=== PATIENT | female | born 1970 | race Caucasian/White ===

== ENCOUNTER → 2016-09-23 | Outpatient (CLI) | payer BC ==
[~2016-09-23] MED LIST: /ACYC20CA PO; /PANT40TA PO; ALBUTEROL INH; ANTI50TA PO; COLE1TA PO; DEPA500T2 PO; EFFEXOR XR PO; FIORCAP7 PO; TOPA100T PO; ZOVI200C PO
--- NOTE | 2016-09-24 02:59 | REP ---
Clinical: Trauma with pain to the first and second metatarsal region. Technique: AP, lateral, bilateral oblique views foot . Findings: The osseous structures and joint spaces are intact and normal. There is no evidence for acute fracture or dislocation. Surrounding soft tissues are unremarkable. No subcutaneous emphysema or radiodense foreign body. Impression: Normal examination. No acute fracture or dislocation. Signed by Vinay Ramirez MD 09/24/2016 02:50 A
--- NOTE | 2016-09-24 03:06 | REP ---
Clinical: Trauma. Injury. Technique: AP, lateral, bilateral oblique views of the right ankle. Findings: Lateral soft tissue swelling noted. No acute fracture or dislocation. Joint spaces and ankle mortise are intact. Impression: Lateral swelling. No fracture. Signed by Vinay Ramirez MD 09/24/2016 02:58 A
== END | disposition home or self-care (01) ==
LOC: M WUC 17:33
PROVIDERS: ATTEND Physician Assistant
DX: S90.31XA Contusion of right foot, initial encounter (principal); S90.01XA Contusion of right ankle, initial encounter; M25.471 Effusion, right ankle; X58.XXXA Exposure to other specified factors, initial encounter; Y92.9 Unspecified place or not applicable; Y93.9 Activity, unspecified; Y99.9 Unspecified external cause status

== ENCOUNTER 2017-03-17 20:57 | Emergency (ER) | payer BC ==
[~2017-03-17] VITALS: Ht 154.9 cm; Wt 78.1 kg
[2017-03-17] MEDS ORDERED: CELE40TA PO (21:13)
[2017-03-17] MEDS ORDERED: OMEP10CASR PO (21:13)
[2017-03-17] MEDS ORDERED: KETOROLAC 30 MG/ML VIAL (J1885) IV ONE (22:45)
[2017-03-17] MEDS ORDERED: NS 1,000 ML IV ONE (22:45)
[2017-03-17] MEDS ORDERED: ONDANSETRON 4MG/2ML VIAL (J2405) IV ONE (22:45)
[2017-03-17 23:33] LABS: BASO # 0.1 K/mm3 (0.0-0.2); BASO % 0.8 % (0.0-1.0); EOS # 0.5 K/mm3 (0.0-0.50); EOS % 4.4 % (0.0-3.0); LARGE UNSTAINED CELL # 0.2 K/mm3 (0.0-0.4); LARGE UNSTAINED CELL % 1.5 % (0.0-4.0); LYMPH # 3.4 K/mm3 (1.5-4.5); LYMPH % 27.3 % (24.0-44.0); MEAN CORPUSCULAR HEMOGLOBIN 31.3 pg (27.0-33.0); MEAN CORPUSCULAR HGB CONC 33.8 g/dl (32.0-36.5); MEAN CORPUSCULAR VOLUME 92.4 fl (80.0-96.0); MONO # 0.6 K/mm3 (0.0-0.8); MONO % 4.8 % (0.0-5.0); NEUTROPHILS # 7.3 K/mm3 (1.8-7.7); NEUTROPHILS % 61.1 % (36.0-66.0); PLATELET COUNT, AUTOMATED 265 k/mm3 (150-450); RED CELL DISTRIBUTION WIDTH 12.6 % (11.5-14.5)
[2017-03-18] LABS: ALBUMIN 3.7 GM/DL (3.2-5.2); ALBUMIN/GLOBULIN RATIO 0.82 (1.00-1.93); ALKALINE PHOSPHATASE 95 U/L (45-117); ALT/SGPT 44 U/L (12-78); AMYLASE 38 U/L (25-115); ANION GAP 8 MEQ/L (8-16); AST/SGOT 25 U/L (15-37); BILIRUBIN,DIRECT < 0.1 MG/DL (0.0-0.2); BILIRUBIN,TOTAL 0.2 MG/DL (0.2-1.0); BLOOD UREA NITROGEN 9 MG/DL (7-18); CARBON DIOXIDE LEVEL 30 MEQ/L (21-32); CHLORIDE LEVEL 99 MEQ/L (98-107); CREATININE FOR GFR 0.66 MG/DL (0.55-1.02); GLOMERULAR FILTRATION RATE > 60.0 (>58); GLUCOSE, FASTING 228 MG/DL (70-105); POTASSIUM SERUM 3.9 MEQ/L (3.5-5.1); SODIUM LEVEL 137 MEQ/L (136-145); TOTAL PROTEIN 8.2 GM/DL (6.4-8.2)
[2017-03-18] MEDS ORDERED: CIPR-249 PO (00:20)
[2017-03-18] MEDS ORDERED: CIPROFLOXACIN 500 MG TAB PO ONE (00:30)
[2017-03-18 00:45] VITALS: BP 144/92
== END 2017-03-18 00:57 | disposition home or self-care (01) ==
LOC: M ED 20:57
DX: R10.84 Generalized abdominal pain (principal); R19.7 Diarrhea, unspecified; R42 Dizziness and giddiness; Z88.1 Allergy status to other antibiotic agents; Z88.2 Allergy status to sulfonamides; Z88.8 Allergy status to other drugs, medicaments and biological substances; Z79.899 Other long term (current) drug therapy
CPT/HCPCS: 80048; 80076; 81001; 82150; 83690; 85025; 96361; 96374; 96375; 99283; J1885; J2405

== ENCOUNTER 2018-01-18 22:54 | Emergency (ER) | payer BC ==
[2018-01-19 00:58] LABS: BASO # 0.1 10^3/uL (0.0-0.2); BASO % 0.6 % (0.0-1.0); EOS # 0.4 10^3/uL (0.0-0.50); EOS % 4.2 % (0.0-3.0); IMMATURE GRANULOCYTE % 0.2 % (0-3.0); LYMPH # 3.1 10^3/uL (1.5-4.5); LYMPH % 30.2 % (24.0-44.0); MEAN CORPUSCULAR HEMOGLOBIN 30.8 pg (27.0-33.0); MEAN CORPUSCULAR HGB CONC 34.2 g/dl (32.0-36.5); MONO # 0.7 10^3/uL (0.0-0.8); MONO % 6.4 % (0.0-5.0); NEUTROPHILS # 5.9 10^3/uL (1.8-7.7); NEUTROPHILS % 58.4 % (36.0-66.0); PLATELET COUNT, AUTOMATED 229 10^3/uL (150-450); RED BLOOD COUNT 4.22 10^6/uL (4.00-5.40); RED CELL DISTRIBUTION WIDTH 12.3 % (11.5-14.5); WHITE BLOOD COUNT 10.1 10^3/uL (4.0-10.0)
[2018-01-19 02:13] LABS: ANION GAP 7 MEQ/L (8-16); BLOOD UREA NITROGEN 12 MG/DL (7-18); C REACTIVE PROTEIN QUANTITATIV 1.54 MG/DL (0.00-0.30); CALCIUM LEVEL 8.2 MG/DL (8.5-10.1); CARBON DIOXIDE LEVEL 26 MEQ/L (21-32); CHLORIDE LEVEL 105 MEQ/L (98-107); CREATININE FOR GFR 0.66 MG/DL (0.55-1.30); GLOMERULAR FILTRATION RATE > 60.0 (>58); GLUCOSE, FASTING 271 MG/DL (70-100); POTASSIUM SERUM 3.7 MEQ/L (3.5-5.1); SODIUM LEVEL 138 MEQ/L (136-145)
[2018-01-19] MEDS: CLINDAMYCIN 600 MG in APPROPRIATE DILUENT 1 EA IV (03:07)
[2018-01-19 09:12] LABS: BEDSIDE GLUCOSE 320 MG/DL (70-105)
== END 2018-01-19 03:55 | disposition home or self-care (01) ==
LOC: M ED 22:54
DX: L03.115 Cellulitis of right lower limb (principal); E11.9 Type 2 diabetes mellitus without complications; Z88.8 Allergy status to other drugs, medicaments and biological substances; Z88.0 Allergy status to penicillin; Z88.2 Allergy status to sulfonamides; Z91.048 Other nonmedicinal substance allergy status; Z79.899 Other long term (current) drug therapy; Z79.84 Long term (current) use of oral hypoglycemic drugs
CPT/HCPCS: 93971

== ENCOUNTER 2018-03-23 21:12 | Emergency (ER) | payer BC ==
[2018-03-23] MEDS: TETRACAINE 0.5% OPHTH SOLN 4ML OD (22:52)
[2018-03-23] MEDS: LISSAMINE GREEN OPHTH 1.5 MG STRIP OD (22:52)
== END 2018-03-23 23:09 | disposition home or self-care (01) ==
LOC: M ED 21:12
DX: L03.213 Periorbital cellulitis (principal); E11.9 Type 2 diabetes mellitus without complications; G43.909 Migraine, unspecified, not intractable, without status migrainosus; E78.5 Hyperlipidemia, unspecified; J45.909 Unspecified asthma, uncomplicated; Z79.4 Long term (current) use of insulin; Z79.899 Other long term (current) drug therapy; Z88.2 Allergy status to sulfonamides; Z88.8 Allergy status to other drugs, medicaments and biological substances
CPT/HCPCS: 99283

== ENCOUNTER 2018-03-24 23:48 | Observation (INO) | payer BC ==
[2018-03-25 00:51] LABS: BASO # 0.1 10^3/uL (0.0-0.2); BASO % 0.7 % (0.0-1.0); EOS # 0.4 10^3/uL (0.0-0.50); EOS % 3.7 % (0.0-3.0); HEMATOCRIT 42.5 % (36.0-47.0); HEMOGLOBIN 14.6 g/dl (12.0-15.5); IMMATURE GRANULOCYTE % 0.4 % (0-3.0); LYMPH # 3.6 10^3/uL (1.5-4.5); LYMPH % 33.1 % (24.0-44.0); MEAN CORPUSCULAR HEMOGLOBIN 31.1 pg (27.0-33.0); MEAN CORPUSCULAR HGB CONC 34.4 g/dl (32.0-36.5); MEAN CORPUSCULAR VOLUME 90.4 fl (80.0-96.0); MONO # 0.7 10^3/uL (0.0-0.8); MONO % 6.1 % (0.0-5.0); PLATELET COUNT, AUTOMATED 249 10^3/uL (150-450); RED CELL DISTRIBUTION WIDTH 12.2 % (11.5-14.5); WHITE BLOOD COUNT 10.7 10^3/uL (4.0-10.0)
[2018-03-25] MEDS ORDERED: ISOVUE-370 76% 100ML VIAL (Q9967) As Ordered (00:54)
[2018-03-25 01:11] LABS: ERYTHROCYTE SEDIMENTATION RATE 34 mm/hr (0-20)
[2018-03-25 01:23] LABS: ALBUMIN 3.5 GM/DL (3.2-5.2); ALBUMIN/GLOBULIN RATIO 0.85 (1.00-1.93); ALKALINE PHOSPHATASE 89 U/L (45-117); ALT/SGPT 22 U/L (12-78); ANION GAP 7 MEQ/L (8-16); AST/SGOT 11 U/L (7-37); BILIRUBIN,DIRECT < 0.1 MG/DL (0.0-0.2); BILIRUBIN,TOTAL 0.2 MG/DL (0.2-1.0); BLOOD UREA NITROGEN 9 MG/DL (7-18); C REACTIVE PROTEIN QUANTITATIV 1.81 MG/DL (0.00-0.30); CALCIUM LEVEL 8.6 MG/DL (8.5-10.1); CARBON DIOXIDE LEVEL 27 MEQ/L (21-32); CHLORIDE LEVEL 104 MEQ/L (98-107); CREATININE FOR GFR 0.58 MG/DL (0.55-1.30); GLOMERULAR FILTRATION RATE > 60.0 (>58); GLUCOSE, FASTING 171 MG/DL (70-100); POTASSIUM SERUM 3.8 MEQ/L (3.5-5.1); SODIUM LEVEL 138 MEQ/L (136-145); TOTAL PROTEIN 7.6 GM/DL (6.4-8.2)
[2018-03-25] MEDS: IBUPROFEN 800 MG TAB PO (01:30)
[2018-03-25] MEDS: CLINDAMYCIN 600 MG in APPROPRIATE DILUENT 1 EA IV ×2 (02:15→09:48)
[2018-03-25] MEDS ORDERED: BISACODYL 5 MG TAB PO (02:45)
[2018-03-25] MEDS ORDERED: zolPIDEM TARTRATE 5 MG TAB PO (02:45)
[2018-03-25] MEDS ORDERED: ONDANSETRON 4 MG TAB (S0181) PO (02:45)
[2018-03-25] MEDS ORDERED: GLUCOSE 4 GM CHEW TABLET PO (06:15)
[2018-03-25] MEDS ORDERED: GLUCAGON FOR INJ 1 MG VIAL (J1610) SC (06:15)
[2018-03-25] MEDS ORDERED: DEXTROSE 50% 50 ML SYRINGE IV (06:15)
[2018-03-25] MEDS: HEPARIN SOD (PORCINE) 5000 UNITS/ML VIAL SC (06:33)
[2018-03-25] MEDS ORDERED: busPIRone 5 MG TAB PO (07:15)
[2018-03-25] MEDS ORDERED: metFORMIN XR 500MG TAB *GLUCOPHAGE XR PO (08:00)
[2018-03-25 08:04] LABS: BEDSIDE GLUCOSE 132 MG/DL (70-105)
[2018-03-25] MEDS ORDERED: PILL CRUSHER/CUTTER 1 EACH XX (08:15)
[2018-03-25] MEDS: HumaLOG INSULIN (NovoLOG) PER UNIT SC ×2 (08:23→13:26)
[2018-03-25] MEDS: CitaloPRAM (CeleXA) 20 MG TAB PO (08:24)
[2018-03-25] MEDS: OMEPRAZOLE 20 MG CAP PO (08:24)
[2018-03-25] MEDS: busPIRone 5 MG TAB PO (08:25)
[2018-03-25] MEDS: ACETAMINOPHEN TAB 650MG DOSE (2X325MG) PO (08:41)
[2018-03-25] MEDS: ADVAIR HFA 115/21MCG INHALER INH (11:26)
[2018-03-25 12:24] LABS: BEDSIDE GLUCOSE 158 MG/DL (70-105)
[2018-03-25] MEDS: TOBRADEX OPHTH SUSP 2.5 ML OD (13:26)
[2018-03-25] MEDS ORDERED: HumaLOG INSULIN (NovoLOG) PER UNIT SC (21:00)
[2018-03-25] MEDS ORDERED: LEVEMIR (INSULIN DETEMIR) 1 UNITS/0.01ML SC ×2 (21:00)
== END 2018-03-25 14:27 | disposition home or self-care (01) ==
LOC: M ED 23:48 → M ED INP 23:49 → M PED 03-25 04:15
DX: L03.213 Periorbital cellulitis (principal); E11.9 Type 2 diabetes mellitus without complications; Z79.4 Long term (current) use of insulin; Z79.899 Other long term (current) drug therapy; Z88.2 Allergy status to sulfonamides; Z88.8 Allergy status to other drugs, medicaments and biological substances
CPT/HCPCS: Q9967

== ENCOUNTER 2018-06-06 16:20 | Emergency (ER) | payer BC ==
[2018-06-06 17:44] LABS: HEMOGLOBIN 14.8 g/dl (12.0-15.5); MEAN CORPUSCULAR HEMOGLOBIN 31.2 pg (27.0-33.0); MEAN CORPUSCULAR HGB CONC 35.2 g/dl (32.0-36.5); MEAN CORPUSCULAR VOLUME 88.4 fl (80.0-96.0); PLATELET COUNT, AUTOMATED 217 10^3/uL (150-450); RED BLOOD COUNT 4.75 10^6/uL (4.00-5.40); RED CELL DISTRIBUTION WIDTH 13.5 % (11.5-14.5); WHITE BLOOD COUNT 6.9 10^3/uL (4.0-10.0)
[2018-06-06 17:54] LABS: CONTROL LINE HCG INT CTR LINE PRESENT; HCG, SERUM QUALITATIVE NEGATIVE (NEGATIVE)
[2018-06-06 18:03] LABS: AMPHETAMINES LEVEL URINE NEGATIVE (NEGATIVE); BARBITURATES URINE POSITIVE (NEGATIVE); BENZODIAZEPINES URINE NEGATIVE (NEGATIVE); CANNABINOIDS URINE NEGATIVE (NEGATIVE); COCAINE METABOLITE URINE NEGATIVE (NEGATIVE); METHADONE URINE NEGATIVE (NEGATIVE); OPIATES URINE NEGATIVE (NEGATIVE); PHENCYCLIDINE URINE NEGATIVE (NEGATIVE)
[2018-06-06 18:18] LABS: ACETAMINOPHEN LEVEL < 2.0 UG/ML (10.0-30.0); ALBUMIN 3.5 GM/DL (3.2-5.2); ALKALINE PHOSPHATASE 99 U/L (45-117); ALT/SGPT 48 U/L (12-78); ANION GAP 6 MEQ/L (8-16); AST/SGOT 33 U/L (7-37); BILIRUBIN,DIRECT < 0.1 MG/DL (0.0-0.2); BILIRUBIN,TOTAL 0.3 MG/DL (0.2-1.0); BLOOD UREA NITROGEN 10 MG/DL (7-18); CALCIUM LEVEL 8.1 MG/DL (8.5-10.1); CARBON DIOXIDE LEVEL 28 MEQ/L (21-32); CHLORIDE LEVEL 103 MEQ/L (98-107); CREATININE FOR GFR 0.64 MG/DL (0.55-1.30); ETHYL ALCOHOL (ETHANOL) < 0.003 % (0.000-0.010); GLOMERULAR FILTRATION RATE > 60.0 (>58); GLUCOSE, FASTING 220 MG/DL (70-100); POTASSIUM SERUM 4.1 MEQ/L (3.5-5.1); SALICYLATE LEVEL < 1.7 MG/DL (5.0-30.0); SODIUM LEVEL 137 MEQ/L (136-145); TOTAL PROTEIN 7.9 GM/DL (6.4-8.2)
== END 2018-06-06 20:25 | disposition home or self-care (01) ==
LOC: M ED 16:20
DX: F32.9 Major depressive disorder, single episode, unspecified (principal); F41.9 Anxiety disorder, unspecified; K21.9 Gastro-esophageal reflux disease without esophagitis; J45.909 Unspecified asthma, uncomplicated; Z88.8 Allergy status to other drugs, medicaments and biological substances; Z88.2 Allergy status to sulfonamides; E11.9 Type 2 diabetes mellitus without complications; Z79.4 Long term (current) use of insulin; Z79.84 Long term (current) use of oral hypoglycemic drugs; Z79.899 Other long term (current) drug therapy
CPT/HCPCS: G0480

== ENCOUNTER → 2018-07-05 | Outpatient (REF) | payer BC | LOC: M LAB REF 16:57 | DX: N76.0 Acute vaginitis (principal) ==

== ENCOUNTER → 2018-07-21 | Outpatient (REF) | payer BC ==
[2018-07-22 17:13] LABS: CHLAMYDIA DNA AMPLIFICATION NEGATIVE (NEGATIVE); GC DNA AMPLIFICATION NEGATIVE (NEGATIVE)
== END ==
LOC: M LAB REF 07-22 12:36
DX: N76.0 Acute vaginitis (principal); R30.0 Dysuria
CPT/HCPCS: 87186

== ENCOUNTER → 2018-09-15 | Outpatient (REF) | payer BC ==
[~2018-09-15] MED LIST changes: +ADV250INH INH; +AK-T0.3S; +ARIP1TAB4; +BUSP1TAB PO; +CELE40TA PO; +CEPH500C; +CEPH500C PO; +CEPH750C PO; +CIPR-249 PO; +CLEO300C2 PO; +FIOR1CAP PO; +INSUDET SC; +LORA0.5T11; +MECL-68 PO; +METF-700 PO; +METF500T4 PO; +OMEP10CASR PO; +OMEP20CA3 PO; +PROA1AER2 INH; +TOBR0.3S37 OU; +TOBRSUS8 OD; +VITA2000 PO; +ZYRT10CA PO
== END ==
LOC: M LAB REF 12:09
PROVIDERS: ATTEND Nurse Practitioner Family
DX: N76.0 Acute vaginitis (principal)

== ENCOUNTER 2020-02-21 14:57 | Emergency (ER) | payer BC ==
[~2020-02-21] VITALS: Ht 154.9 cm; Wt 78.8 kg
[~2020-02-21 14:57] MED LIST changes: -/ACYC20CA PO; -/PANT40TA PO; +ACYC1CAP8 PO; -LORA0.5T11; +LORA0.5T5; -MECL-68 PO; +MECL1TAB31 PO; +METF-838 PO; -METF500T4 PO; +OMEP1CAP73 PO; -OMEP20CA3 PO; +PROT1TAB2 PO
[2020-02-21] MEDS ORDERED: NS 1,000 ML IV ONE (15:30)
[2020-02-21] MEDS ORDERED: ONDANSETRON 4MG/2ML VIAL IV ONE (15:30)
[2020-02-21] MEDS ORDERED: diphenhydrAMINE 50MG/ML VIAL (J1200) IV ONE (15:30)
[2020-02-21] MEDS ORDERED: ACETAMINOPHEN 500 MG TAB PO ONE (15:30)
[2020-02-21] MEDS ORDERED: KETOROLAC 30 MG/ML 1ML VIAL IM ONE (15:30)
[2020-02-21] MEDS ORDERED: KETOROLAC 30 MG/ML 1ML VIAL IV ONE (16:00)
[2020-02-21] MEDS ORDERED: MORPHINE 4 MG/ML 1ML VIAL/SYRINGE (J2270) IV ONE (16:30)
[2020-02-21 17:20] VITALS: BP 120/61
== END 2020-02-21 17:33 | disposition home or self-care (01) ==
LOC: M ED 14:57
DX: G43.909 Migraine, unspecified, not intractable, without status migrainosus (principal); E11.9 Type 2 diabetes mellitus without complications; J45.909 Unspecified asthma, uncomplicated; Z79.4 Long term (current) use of insulin; Z79.899 Other long term (current) drug therapy; Z88.2 Allergy status to sulfonamides; Z88.8 Allergy status to other drugs, medicaments and biological substances
CPT/HCPCS: 96361; 96374; 96375; 99284; J1200; J1885; J2270; J2405

== ENCOUNTER 2020-03-26 17:55 | Emergency (ER) | payer BC ==
[~2020-03-26 17:55] MED LIST changes: -METF-700 PO; +METF-818 PO
[2020-03-26] MEDS ORDERED: lisinopriL 10 MG TAB ONE (21:29)
[2020-03-26] MEDS ORDERED: lisinopriL 10 MG TAB As Ordered ONE (21:29)
[2020-05-02 14:54] LABS: BLOOD UREA NITROGEN 7 MG/DL (7-18); CALCIUM LEVEL 9.5 MG/DL (8.5-10.1); CARBON DIOXIDE LEVEL 32 MEQ/L (21-32); CHLORIDE LEVEL 99 MEQ/L (98-107); CK-MB VALUE MASS < 1.0 NG/ML (<3.6); CPK CREATINE PHOSPHOKINASE 63 U/L (26-192); GLOMERULAR FILTRATION RATE > 60.0 (>58); GLUCOSE, FASTING 138 MG/DL (70-100); MB/CK RELATIVE INDEX 1.59 (< OR =4); POTASSIUM SERUM 3.9 MEQ/L (3.5-5.1); SODIUM LEVEL 134 MEQ/L (136-145); TROPONIN I < 0.02 NG/ML (< 0.10)
[2020-05-02 15:02] LABS: HEMATOCRIT 45.4 % (36.0-47.0); HEMOGLOBIN 15.4 g/dl (12.0-15.5); MEAN CORPUSCULAR HEMOGLOBIN 31.6 pg (27.0-33.0); MEAN CORPUSCULAR HGB CONC 33.9 g/dl (32.0-36.5); PLATELET COUNT, AUTOMATED 254 10^3/uL (150-450); RED BLOOD COUNT 4.88 10^6/uL (4.00-5.40); WHITE BLOOD COUNT 11.2 10^3/uL (4.0-10.0)
--- NOTE | 2020-05-09 14:54 | ECGEPIP ---
NORMAL SINUS RHYTHM SEE SCANNED DOWNTIME REPORT MTDD
[2020-05-12 08:48] LABS: APPEARANCE, URINE CLEAR (CLEAR); BACTERIA, URINE AUTO NEGATIVE (NEGATIVE); BILIRUBIN, URINE AUTO NEGATIVE (NEGATIVE); BLOOD, URINE BLOOD NEGATIVE (NEGATIVE); COLOR, URINE STRAW (YELLOW); GLUCOSE, URINE (UA) AUTO NEGATIVE (NEGATIVE); KETONE, URINE AUTO NEGATIVE (NEGATIVE); LEUKOCYTE ESTERASE, URINE AUTO NEGATIVE (NEGATIVE); NITRITE, URINE AUTO NEGATIVE (NEGATIVE); PROTEIN, URINE AUTO NEGATIVE (NEGATIVE); RBC, URINE AUTO 0 /HPF (0-3); SPECIFIC GRAVITY URINE AUTO 1.006 (1.002-1.035); SQUAMOUS EPITHELIAL CELL UR AU 1 /HPF (0-6); UROBILINOGEN, URINE AUTO 0.2 mg/dL (0.0-2.0); WBC, URINE AUTO 0 /HPF (0-3)
== END 2020-03-26 22:33 | disposition home or self-care (01) ==
LOC: M ED 17:55
DX: I10 Essential (primary) hypertension (principal); I67.1 Cerebral aneurysm, nonruptured; E11.9 Type 2 diabetes mellitus without complications; K21.9 Gastro-esophageal reflux disease without esophagitis; G43.909 Migraine, unspecified, not intractable, without status migrainosus; J45.909 Unspecified asthma, uncomplicated; Z88.2 Allergy status to sulfonamides; Z79.51 Long term (current) use of inhaled steroids; Z79.84 Long term (current) use of oral hypoglycemic drugs; Z79.899 Other long term (current) drug therapy

== ENCOUNTER → 2020-05-02 | Outpatient (CLI) | payer BC ==
[2020-05-02 19:56] LABS: BASO # 0.1 10^3/uL (0.0-0.2); BASO % 0.7 % (0.0-1.0); EOS # 0.5 10^3/uL (0.0-0.5); HEMATOCRIT 42.6 % (36.0-47.0); HEMOGLOBIN 14.4 g/dl (12.0-15.5); LYMPH # 3.5 10^3/uL (1.5-5.0); LYMPH % 30.4 % (24.0-44.0); MEAN CORPUSCULAR HEMOGLOBIN 31.7 pg (27.0-33.0); MEAN CORPUSCULAR HGB CONC 33.8 g/dl (32.0-36.5); MEAN CORPUSCULAR VOLUME 93.8 fl (80.0-96.0); MONO # 0.7 10^3/uL (0.0-0.8); MONO % 5.9 % (0.0-5.0); NEUTROPHILS # 6.7 10^3/uL (1.5-8.5); NEUTROPHILS % 58.6 % (36.0-66.0); PLATELET COUNT, AUTOMATED 246 10^3/uL (150-450); RED BLOOD COUNT 4.54 10^6/uL (4.00-5.40); WHITE BLOOD COUNT 11.4 10^3/uL (4.0-10.0)
[2020-05-02 19:58] LABS: BLOOD UREA NITROGEN 15 MG/DL (7-18); CALCIUM LEVEL 8.8 MG/DL (8.5-10.1); CARBON DIOXIDE LEVEL 32 MEQ/L (21-32); CHLORIDE LEVEL 99 MEQ/L (98-107); GLOMERULAR FILTRATION RATE > 60.0 (>58); GLUCOSE, FASTING 263 MG/DL (70-100); POTASSIUM SERUM 4.3 MEQ/L (3.5-5.1); SODIUM LEVEL 135 MEQ/L (136-145)
[2020-05-02 20:05] LABS: INR 0.9; PROTHROMBIN TIME 12.4 SECONDS (11.8-14.0)
[2020-05-02 20:06] LABS: PARTIAL THROMBOPLASTIN TIME 28.2 SECONDS (25.0-38.4)
== END ==
LOC: M WUC 16:28
PROVIDERS: ATTEND Student in an Organized Health Care Education/Training Program
DX: I67.1 Cerebral aneurysm, nonruptured (principal)

== ENCOUNTER → 2020-05-05 | Outpatient (CLI) | payer BC | LOC: M LABSMTC 10:02 | PROVIDERS: ATTEND Student in an Organized Health Care Education/Training Program | DX: Z11.59 Encounter for screening for other viral diseases (principal); Z20.828 Contact with and (suspected) exposure to other viral communicable diseases | CPT/HCPCS: C9803; U0003 ==

== ENCOUNTER 2020-09-24 06:37 | Emergency (ER) | payer BC ==
[~2020-09-24] VITALS: Ht 154.9 cm; Wt 36.2 kg
--- OUTSIDE RECORDS SUMMARY | 2020-09-24 06:48 | CCD ---
Author Author [facility] Organization [facility] Address Unknown Phone Unavailable Care Team Providers Care Manager Float Name Role Phone Yohan Dale MD Unavailable Unavailable CandisalinYohan aquino MD Unavailable Unavailable CandisalinYohan aquino MD Unavailable Unavailable CandisalinYohan aquino MD Unavailable Unavailable Yohan Dale MD Unavailable Unavailable CandisalinYohan aquino MD Unavailable Unavailable Yohan Dale MD Unavailable Unavailable Yohan Dale MD Unavailable Unavailable Yohan Dale MD Unavailable Unavailable Yohan Dale MD Unavailable Unavailable Yohan Dale MD Unavailable Unavailable Yohan Dale MD Unavailable Unavailable Yohan Dale MD Unavailable Unavailable Yohan Dale MD Unavailable Unavailable Yohan Dale MD Unavailable Unavailable Yohan Dale MD Unavailable Unavailable Yohan Dale MD Unavailable Unavailable Yohan Dale MD Unavailable Unavailable Yohan Dale MD Unavailable Unavailable Yohan Dale MD Unavailable Unavailable Yohan Dale MD Unavailable Unavailable Yohan Dale MD Unavailable Unavailable Yohan Dale MD Unavailable Unavailable Yohan Dale MD Unavailable Unavailable Padalino, Yohan Lyons MD Unavailable Unavailable Padalino, Yohan Lyons MD Unavailable Unavailable Padalino, Yohan Lyons MD Unavailable Unavailable Padalino, Yohan Lyons MD Unavailable Unavailable Padalino, Yohan Lyons MD Unavailable Unavailable Padalino, Yohan Lyons MD Unavailable Unavailable Padalino, Yohan Lyons MD Unavailable Unavailable Padalino, Yohan Lynos MD Unavailable Unavailable Padalino, Yohan Lyons MD Unavailable Unavailable Padalino, Yohan Lyons MD Unavailable Unavailable Padalino, Yohan Lyons MD Unavailable Unavailable Padalino, Yohan Lyons MD Unavailable Unavailable Padalino, Yohan Lyons MD Unavailable Unavailable Padalino, Yohan Lyons MD Unavailable Unavailable Padalino, Yohan Lyons MD Unavailable Unavailable Padalino, Yohan Lyons MD Unavailable Unavailable Padalino, Yohan Lyons MD Unavailable Unavailable Padalino, Yohan Lyons MD Unavailable Unavailable Padalino, Yohan Lyons MD Unavailable Unavailable Padalino, Yohan Lyons MD Unavailable Unavailable Padalino, Yoahn Lyons MD Unavailable Unavailable Padalino, Yohan Lyons MD Unavailable Unavailable Padalino, Yohan Lyons MD Unavailable Unavailable Padalino, Yohan Lyons MD Unavailable Unavailable Padalino, Yohan Lyons MD Unavailable Unavailable Padalino, Yohan Lyons MD Unavailable Unavailable Padalino, Yohan Lyons MD Unavailable Unavailable Padalino, Yohan Lyons MD Unavailable Unavailable Padalino, Yohan Lyons MD Unavailable Unavailable Padalino, Yohan Lyons MD Unavailable Unavailable Padalino, Yohan Lyons MD Unavailable Unavailable Padalino, Yohan Lyons MD Unavailable Unavailable Padalino, Yohan Lyons MD Unavailable Unavailable Padalino, Yohan Lyons MD Unavailable Unavailable Padalino, Yohan Lyons MD Unavailable Unavailable Padalino, Yohan Lyons MD Unavailable Unavailable Padalino, Yohan Lyons MD Unavailable Unavailable Padalino, Yohan Lyons MD Unavailable Unavailable Padalino, Yohan Lyons MD Unavailable Unavailable Padalino, Yohan Lyons MD Unavailable Unavailable Padalino, Yohan Lyons MD Unavailable Unavailable Padalino, Yohan Lyons MD Unavailable Unavailable Padalino, Yohan Lyons MD Unavailable Unavailable Padalino, Yohan Lyons MD Unavailable Unavailable Padalino, Yohan Lyons MD Unavailable Unavailable Padalino, Yohan Lyons MD Unavailable Unavailable Padalino, Yohan Lyons MD Unavailable Unavailable Padalino, Yohan Lyons MD Unavailable Unavailable Padalino, Yohan Loyns MD Unavailable Unavailable Padalino, Yohan Lyons MD Unavailable Unavailable Padalino, Yohan Lyons MD Unavailable Unavailable Padalino, Yohan Lyons MD Unavailable Unavailable Padalino, Yohan Lyons MD Unavailable Unavailable Padalino, Yohan Lyons MD Unavailable Unavailable Padalino, Yohan Lyons MD Unavailable Unavailable Padalino, Yohan Lyons MD Unavailable Unavailable Padalino, Yohan Lyons MD Unavailable Unavailable Padalino, Yohan Lyons MD Unavailable Unavailable Padalino, Yohan Lyons MD Unavailable Unavailable Padalino, Yohan Lyons MD Unavailable Unavailable Padalino, Yohan Lyons MD Unavailable Unavailable Padalino, Yohan Lyons MD Unavailable Unavailable Padalino, Yohan Lyons MD Unavailable Unavailable Padalino, Yohan Lyons MD Unavailable Unavailable Padalino, Yohan Lyons MD Unavailable Unavailable Padalino, Yohan Lyons MD Unavailable Unavailable Padalino, Yohan Lyons MD Unavailable Unavailable Padalino, Yohan Lyons MD Unavailable Unavailable Padalino, Yohan Lyons MD Unavailable Unavailable Padalino, Yohan Lyons MD Unavailable Unavailable Padalino, Yohan Lyons MD Unavailable Unavailable Padalino, Yohan Lyons MD Unavailable Unavailable Padalino, Yohan Lyons MD Unavailable Unavailable Padalino, Yohan Lyons MD Unavailable Unavailable Padalino, Yohan Lyons MD Unavailable Unavailable Padalino, Yohan Lyons MD Unavailable Unavailable Padalino, Yohan Lyons MD Unavailable Unavailable Padalino, Yohan Lyons MD Unavailable Unavailable Padalino, Yohan Lyons MD Unavailable Unavailable Padalino, Yohan Lyons MD Unavailable Unavailable Padalino, Yohan Lyons MD Unavailable Unavailable Padalino, Yohan Lyons MD Unavailable Unavailable Padalino, Yohan Lyons MD Unavailable Unavailable Padalino, Yohan Lyons MD Unavailable Unavailable Padalino, Yohan Lyons MD Unavailable Unavailable Padalino, Yohan Lyons MD Unavailable Unavailable Padalino, Yohan Lyons MD Unavailable Unavailable Padalino, Yohan Lyons MD Unavailable Unavailable Padalino, Yohan Lyons MD Unavailable Unavailable Padalino, Yohan Lyons MD Unavailable Unavailable Padalino, Yohan Lyons MD Unavailable Unavailable Padalino, Yohan Lyons MD Unavailable Unavailable Padalino, Yohan Lyons MD Unavailable Unavailable Padalino, Yohan Lyons MD Unavailable Unavailable Padalino, Yohan Lyons MD Unavailable Unavailable Padalino, Yohan Lyons MD Unavailable Unavailable Padalino, Yohan Lyons MD Unavailable Unavailable Padalino, Yohan Lyons MD Unavailable Unavailable Padalino, Yohan Lyons MD Unavailable Unavailable Padalino, Yohan Lyons MD Unavailable Unavailable Padalino, Yohan Lyons MD Unavailable Unavailable Padalino, Yohan Lyons MD Unavailable Unavailable Padalino, Yohan Lyons MD Unavailable Unavailable Padalino, Yohan Lyons MD Unavailable Unavailable Padalino, Yohan Lyons MD Unavailable Unavailable Padalino, Yohan Lyons MD Unavailable Unavailable Padalino, Yohan Lyons MD Unavailable Unavailable Padalino, Yohan Lyons MD Unavailable Unavailable Padalino, Yohan Lyons MD Unavailable Unavailable Padalino, Yohan Lyons MD Unavailable Unavailable Padalino, Yohan Lyons MD Unavailable Unavailable Padalino, Yohan Lyons MD Unavailable Unavailable PadalinoYohan MD Unavailable Unavailable PadalinoYohan MD Unavailable Unavailable PadYohan velásquez MD Unavailable Unavailable PadalinYohan aquino MD Unavailable Unavailable PadYohan velásquez MD Unavailable Unavailable PadalinoYohan MD Unavailable Unavailable PadalinYohan aquino MD Unavailable Unavailable PadYohan velásquez MD Unavailable Unavailable PadalinYohan aquino MD Unavailable Unavailable PadYohan velásquez MD Unavailable Unavailable PadYohan velásquez MD Unavailable Unavailable PadyogeshoYohan MD Unavailable Unavailable PadalinoYohan MD Unavailable Unavailable PadalinoYohan MD Unavailable Unavailable PadalinoYohan MD Unavailable Unavailable PadalinoYohan MD Unavailable Unavailable HugoNicole calderon MD Unavailable Unavailable HugoNicole ulloa MD Unavailable Unavailable HugoNicole ulloa MD Unavailable Unavailable HugoNicole ulloa MD Unavailable Unavailable HugoNicole ulloa MD Unavailable Unavailable HugoNicole ulloa MD Unavailable Unavailable HugoNicole ulloa MD Unavailable Unavailable HugoNicole ulloa MD Unavailable Unavailable HugoNicole ulloa MD Unavailable Unavailable HugoNicole ulloa MD Unavailable Unavailable HugoNicole ulloa MD Unavailable Unavailable HugoNicole ulloa MD Unavailable Unavailable HugoNicole ulloa MD Unavailable Unavailable HugoNicole ulloa MD Unavailable Unavailable HugoNicole ulloa MD Unavailable Unavailable HugoNicole ulloa MD Unavailable Unavailable HugoNicole ulloa MD Unavailable Unavailable HugoNicole ulloa MD Unavailable Unavailable HugoNicole ulloa MD Unavailable Unavailable HugoNicole ulloa MD Unavailable Unavailable HugoNicole calderon MD Unavailable Unavailable HugoNicole calderon MD Unavailable Unavailable HugoNicole ulloa MD Unavailable Unavailable HugoNicole ulloa MD Unavailable Unavailable HugoNicole MD Unavailable Unavailable HugoNicole MD Unavailable Unavailable HugoNicole MD Unavailable Unavailable HugoNicole MD Unavailable Unavailable HugoNicole ulloa MD Unavailable Unavailable HugoNicole ulloa MD Unavailable Unavailable HugoNicole MD Unavailable Unavailable HugoNicole MD Unavailable Unavailable HugoNicole MD Unavailable Unavailable HugoNicole MD Unavailable Unavailable Lon, Radha REPATCHER Unavailable Unavailable Lon, Radha REPATCHER Unavailable Unavailable Lon, Radha REPATCHER Unavailable Unavailable Lon, Radha REPATCHER Unavailable Unavailable Lon, Radha REPATCHER Unavailable Unavailable Lon, Radha REPATCHER Unavailable Unavailable Lon, Radha REPATCHER Unavailable Unavailable Lon, Radha REPATCHER Unavailable Unavailable Lon, Radha REPATCHER Unavailable Unavailable Lon, Radha REPATCHER Unavailable Unavailable Lon, Radha REPATCHER Unavailable Unavailable Lon, Radha REPATCHER Unavailable Unavailable Lon, Radha REPATCHER Unavailable Unavailable Lon, Radha REPATCHER Unavailable Unavailable Lon, Radha REPATCHER Unavailable Unavailable Lon, Radha REPATCHER Unavailable Unavailable Lon, Radha REPATCHER Unavailable Unavailable Lon, Radha REPATCHER Unavailable Unavailable Lon, Radha REPATCHER Unavailable Unavailable Lon, Radha REPATCHER Unavailable Unavailable Lno, Radha REPATCHER Unavailable Unavailable Lon, Radha REPATCHER Unavailable Unavailable Lon, Radha REPATCHER Unavailable Unavailable Lon, Radha REPATCHER Unavailable Unavailable Lon, Radha REPATCHER Unavailable Unavailable Lon, Radha REPATCHER Unavailable Unavailable Lon, Radha REPATCHER Unavailable Unavailable Dave, Gudelia REPATCHER Unavailable Unavailable Dave, Gudelia REPATCHER Unavailable Unavailable Dave, Gudelia REPATCHER Unavailable Unavailable Dave, Gudelia REPATCHER Unavailable Unavailable Dave, Gudelia REPATCHER Unavailable Unavailable Dave, Gudelia REPATCHER Unavailable Unavailable Dave, Gudelia REPATCHER Unavailable Unavailable Dave, Gudelia REPATCHER Unavailable Unavailable Dave, Gudelia REPATCHER Unavailable Unavailable Dave, Gudelia REPATCHER Unavailable Unavailable Dave, Gudelia REPATCHER Unavailable Unavailable Dave, Gudelia REPATCHER Unavailable Unavailable Dave, Gudelia REPATCHER Unavailable Unavailable Dave, Gudelia REPATCHER Unavailable Unavailable Dave, Gudelia REPATCHER Unavailable Unavailable Dave, Gudelia REPATCHER Unavailable Unavailable Dave, Gudelia REPATCHER Unavailable Unavailable Dave, Gudelia REPATCHER Unavailable Unavailable Dave, Gudelia REPATCHER Unavailable Unavailable Dave, Gudelia REPATCHER Unavailable Unavailable Dave, Gudelia REPATCHER Unavailable Unavailable Dave, Gudelia REPATCHER Unavailable Unavailable Dave, Gudelia REPATCHER Unavailable Unavailable Dave, Gudelia REPATCHER Unavailable Unavailable Dave, Gudelia REPATCHER Unavailable Unavailable Dave, Gudelia REPATCHER Unavailable Unavailable Dave, Gudelia REPATCHER Unavailable Unavailable Dave, Gudelia REPATCHER Unavailable Unavailable Dave, Gudelia REPATCHER Unavailable Unavailable Dave, Gudelai REPATCHER Unavailable Unavailable Dave, Gudelia REPATCHER Unavailable Unavailable Dave, Gudelia REPATCHER Unavailable Unavailable Dave, Gudelia REPATCHER Unavailable Unavailable Dave, Gudelia REPATCHER Unavailable Unavailable Dave, Gudelia REPATCHER Unavailable Unavailable Dave, Gudelia REPATCHER Unavailable Unavailable Dave, Gudelia REPATCHER Unavailable Unavailable Dave, Gudelia REPATCHER Unavailable Unavailable Dave, Gudelia REPATCHER Unavailable Unavailable Dave, Gudelia REPATCHER Unavailable Unavailable Dave, Gudelia REPATCHER Unavailable Unavailable Dave, Gudelia REPATCHER Unavailable Unavailable Dave, Gudelia REPATCHER Unavailable Unavailable Dave, Gudelia REPATCHER Unavailable Unavailable Dave, Gudelia REPATCHER Unavailable Unavailable Dave, Gudelia REPATCHER Unavailable Unavailable Dave, Gudelia REPATCHER Unavailable Unavailable Dave, Gudelia REPATCHER Unavailable Unavailable Dave, Gudelia REPATCHER Unavailable Unavailable Dave, Gudelia REPATCHER Unavailable Unavailable Dave, Gudelia REPATCHER Unavailable Unavailable Dave, Gudelia REPATCHER Unavailable Unavailable Dave, Gudelia REPATCHER Unavailable Unavailable Padalino, Yohan Lyons MD Unavailable Unavailable Padalino, Yohan Lyons MD Unavailable Unavailable Padalino, Yohan Lyons MD Unavailable Unavailable Padalino, Yohan Lyons MD Unavailable Unavailable Padalino, Yohan Lyons MD Unavailable Unavailable Padalino, Yohan Lyons MD Unavailable Unavailable Padalino, Yohan Lyons MD Unavailable Unavailable Padalino, Yohan Lyons MD Unavailable Unavailable Padalino, Yohan Lyons MD Unavailable Unavailable Padalino, Yohan Lyons MD Unavailable Unavailable Padalino, Yohan Lyons MD Unavailable Unavailable Padalino, Yohan Lyons MD Unavailable Unavailable Padalino, Yohan Lyons MD Unavailable Unavailable Padalino, Yohan Lyons MD Unavailable Unavailable Padalino, Yohan Lyons MD Unavailable Unavailable Padalino, Yohan Lyons MD Unavailable Unavailable Padalino, Yohan Lyons MD Unavailable Unavailable Padalino, Yohan Lyons MD Unavailable Unavailable Padalino, Yohan Lyons MD Unavailable Unavailable Padalino, Yohan Lyons MD Unavailable Unavailable Padalino, Yohan Lyons MD Unavailable Unavailable Padalino, Yohan Lyons MD Unavailable Unavailable Padalino, Yohan Lyons MD Unavailable Unavailable Padalino, Yohan Lyons MD Unavailable Unavailable Padalino, Yohan Lyons MD Unavailable Unavailable Padalino, Yohan Lyons MD Unavailable Unavailable Padalino, Yohan Lyons MD Unavailable Unavailable Padalino, Yohan Lyons MD Unavailable Unavailable Padalino, Yohan Lyons MD Unavailable Unavailable Padalino, Yohan Lyons MD Unavailable Unavailable Padalino, Yohan Lyons MD Unavailable Unavailable Padalino, Yohan Lyons MD Unavailable Unavailable Padalino, Yohan Lyons MD Unavailable Unavailable Padalino, Yohan Lyons MD Unavailable Unavailable Padalino, Yohan Lyons MD Unavailable Unavailable Padalino, Yohan Lyons MD Unavailable Unavailable Padalino, Yohan Lyons MD Unavailable Unavailable Padalino, Yohan Lyons MD Unavailable Unavailable Padalino, Yohan Lyons MD Unavailable Unavailable Padalino, Yohan Lyons MD Unavailable Unavailable Padalino, Yohan Lyons MD Unavailable Unavailable Padalino, Yohan Lyons MD Unavailable Unavailable Padalino, Yohan Lyons MD Unavailable Unavailable Padalino, Yohan Lyons MD Unavailable Unavailable Padalino, Yohan Lyons MD Unavailable Unavailable Padalino, Yohan Lyons MD Unavailable Unavailable Padalino, Yohan Lyons MD Unavailable Unavailable Padalino, Yohan Lyons MD Unavailable Unavailable Padalino, Yohan Lyons MD Unavailable Unavailable Padalino, Yohan Lyons MD Unavailable Unavailable Padalino, Yohan Lyons MD Unavailable Unavailable Padalino, Yohan Lyons MD Unavailable Unavailable Padalino, Yohan Lyons MD Unavailable Unavailable Padalino, Yohan Lyons MD Unavailable Unavailable Padalino, Yohan Lyons MD Unavailable Unavailable Padalino, Yohan Lyons MD Unavailable Unavailable Padalino, Yohan Lyons MD Unavailable Unavailable Padalino, Yohan Lyons MD Unavailable Unavailable Padalino, Yohan Lyons MD Unavailable Unavailable Padalino, Yohan Lyons MD Unavailable Unavailable Padalino, Yohan Lyons MD Unavailable Unavailable Padalino, Yohan Lyons MD Unavailable Unavailable Padalino, Yohan Lyons MD Unavailable Unavailable Padalino, Yohan Lyons MD Unavailable Unavailable Padalino, Yohan Lyons MD Unavailable Unavailable Padalino, Yohan Lyons MD Unavailable Unavailable Padalino, Yohan Lyons MD Unavailable Unavailable Padalino, Yohan Lyons MD Unavailable Unavailable Padalino, Yohan Lyons MD Unavailable Unavailable Padalino, Yohan Lyons MD Unavailable Unavailable Padalino, Yohan Lyons MD Unavailable Unavailable Padalino, Yohan Lyons MD Unavailable Unavailable Padalino, Yohan Lyons MD Unavailable Unavailable Padalino, Yohan Lyons MD Unavailable Unavailable Padalino, Yohan Lyons MD Unavailable Unavailable Padalino, Yohan Lyons MD Unavailable Unavailable TORIE, 0000{ Unavailable Unavailable Re-disclosure Warning The records that you are about to access may contain information from federally-assisted alcohol or drug abuse programs. If such information is present, then the following federally mandated warning applies: This information has been disclosed to you from records protected by federal confidentiality rules (42 CFR part 2). The federal rules prohibit you from making any further disclosure of this information unless further disclosure is expressly permitted by the written consent of the person to whom it pertains or as otherwise permitted by 42 CFR part 2. A general authorization for the release of medical or other information is NOT sufficient for this purpose. The Federal rules restrict any use of the information to criminally investigate or prosecute any alcohol or drug abuse patient.The records that you are about to access may contain highly sensitive health information, the redisclosure of which is protected by Article 27-F of the [facility] Public Health law. If you continue you may have access to information: Regarding HIV / AIDS; Provided by facilities licensed or operated by the [facility] Office of Mental Health; or Provided by the [facility] Office for People With Developmental Disabilities. If such information is present, then the following [facility] mandated warning applies: This information has been disclosed to you from confidential records which are protected by state law. State law prohibits you from making any further disclosure of this information without the specific written consent of the person to whom it pertains, or as otherwise permitted by law. Any unauthorized further disclosure in violation of state law may result in a fine or residential sentence or both. A general authorization for the release of medical or other information is NOT sufficient authorization for further disc losure. Family History Family Member Name Family Member Gender Family Member Status Date o f Status Description Data Source(s) Unknown Female Problem [facility] ([facility]) Unknown Female Problem [facility] ([facility]) Unknown Female Problem [facility] ([facility]) Unknown Female Problem [facility] ([facility] Unknown Female Problem [facility] ([facility] Unknown Female Problem [facility] ([facility]) Unknown Female Problem [facility] ([facility]) Encounters Encounter Providers Location Date Indications Data Source(s ) Outpatient Attender: Nicole GREENEeferrer: Radha WRIGHT 02/03/2021 12:00:00 AM [facility] Outpatient Attender: Radha Garsia 10:40:00 AM EDT [facility] ([facility] ) Outpatient Attender: Eloy Dlae MD 05/10/2020 07:28:47 AM EDT [facility] [place] [facility] Outpatient Attender: Eloy Dale MDAdmitter: Eloy kiser MD 05/10/2020 07:06:00 AM EDT - 05/10/2020 01:24:00 PM EDT CEREBRAL ANEURYSM, NONRUPTURED [facility] CEREBRAL ANEURYSM, NONRUPTURED Patient discharged. Outpatient Attender: 0000{ TORIE 05/10/2020 07:06:00 AM E DT [facility] Outpatient Attender: Eloy Dale MD [facility] [place] 04/30/2020 02:00:00 PM EDT [facility] ([facility]) Outpatient Attender: Radha Garsia 03:00:00 PM EDT [facility] ([facility] ) Outpatient Attender: Gudelia Garsia 0 10/23/2019 07:30:00 AM EST [facility] ([facility] ) Outpatient Attender: Gudelia Garsia 0 08/31/2019 07:30:00 AM EST [facility] ([facility] ) Medications Medication Brand Name Start Date Product Form Dose Route Admi nistrative Instructions Pharmacy Instructions Status Indications Reaction Description Data Source(s) Lisinopril 10 MG Oral Tablet Lisinopril 04/08/2020 12:00:00 AM EDT ORAL active [facility] ([facility]) Aimovig Aimovig 02/29/2020 12:00:00 AM EDT active [facility] ([facility]) 0.5 ML dulaglutide 3 MG/ML Auto-Injector [Trulicity] Trulici ty 02/16/2020 12:00:00 AM EDT active M EDENT ([facility]) Aimovig Aimovig 10/23/2019 12:00:00 AM EST active [facility] ([facility]) topiramate 25 MG Oral Tablet Topiramate 08/07/2019 12:00:00 AM EST ORAL active [facility] ([facility]) Metronidazole 500 MG Oral Tablet Metronidazole 05/19/2019 12:00:00 AM EDT ORAL completed [facility] ([facility]) Insurance Providers Payer name Policy type / Coverage type Policy ID Covered libertarian ID Covered libertarian's relationship to murray Policy Murray Plan Information [facility] FEDERAL EMPLOYEE PROGRAM [id number] SP [id number] [facility] FEDERAL B [id number] S [id number] [facility] HEA [id number] S [id number] [facility] FEDERAL [employer]OYEE PROGRAM [id number] SP [id number] Formerly named [facility]/BS Commercial [id number] Self [id number] ANSI-Commercial [id number] ANSI-Commercial [id number] Formerly named [facility]/BS Commercial [id number] Self [id number] [facility] FEDERAL EMPLOYEE PROGRAM [id number] SP [id number] [facility] Federal Plan Commercial [id number] Self [id number] [facility] [id number] SP [id number] [facility] Federal Plan Commercial [id number] Self [id number] [facility] Federal Plan Commercial Self Formerly named [facility]/ Commercial [id number] Self [id number] [facility] WATN [facility] [id number] SP [id number] Surgeries/Procedures Procedure Description Date Indications Data Source(s) Angiography Internal Corotid Of The Ipsil Intrac Circulation 05/10/2020 12:00:00 AM EDT [facility]) 3D RENDER W/INTERP CT/MRI/US/OTH EVERARDO W/POSTPROC 05/10 12:00:00 AM EDT [facility] ([facility]) Moderate Sedation Services; Same Phys Intl 15 Mins; PT >= 5 Years 05/10/2020 12:00:00 AM EDT [facility] ([facility]) NON-INVASIVE PHYSIOLOGIC STUDY EXTREMITY 3 LEVLS 04/24 12:00:00 AM EDT [facility] ([facility] ) NON-INVASIVE PHYSIOLOGIC STUDY EXTREMITY 3 LEVLS 04/24 12:00:00 AM EDT [facility] ([facility] ) NON-INVASIVE PHYSIOLOGIC STUDY EXTREMITY 3 LEVLS 04/24 12:00:00 AM EDT [facility] ([facility] ) NON-INVASIVE PHYSIOLOGIC STUDY EXTREMITY 3 LEVLS 04/24 12:00:00 AM EDT [facility] ([facility] ) TSTG ANS FUNCJ CARDIOVAGAL INNERVAJ PARASYMP 0 12:00:00 AM EDT [facility] ([facility] ) TSTG ANS FUNCJ CARDIOVAGAL INNERVAJ PARASYMP 0 12:00:00 AM EDT [facility] ([facility] ) TESTING AUTONOMIC NERVOUS SYSTEM FUNCTION 04/24/2020 1 2:00:00 AM EDT [facility] ([facility] ) TESTING AUTONOMIC NERVOUS SYSTEM FUNCTION 04/24/2020 1 2:00:00 AM EDT [facility] ([facility] ) ELECTROENCEPHALOGRAM W/REC AWAKE&ASLEEP 03/19/2020 12: 00:00 AM EDT [facility] ([facility] ) ELECTROENCEPHALOGRAM W/REC AWAKE&ASLEEP 03/19/2020 12: 00:00 AM EDT [facility] ([facility] ) Magnetic Resonance Angiogtaphy Head W/O Contrast Material(S) 03/18/2020 12:00:00 AM EDT [facility] [place] Magnetic Resonance Angiogtaphy Head W/O Contrast Material(S) 03/18/2020 12:00:00 AM EDT [facility] ([facility] ) Magnetic Resonance Angiography Neck W/O And Then With Contra st ML 03/18/2020 12:00:00 AM EDT [facility] ([facility], ) Magnetic Resonance Angiography Neck W/O And Then With Contra st ML 03/18/2020 12:00:00 AM EDT [facility] ([facility], ) MRI BRAIN BRAIN STEM W/O CONTRAST MATERIAL 03/18/2020 12:00:00 AM EDT [facility] ([facility], ) MRI BRAIN BRAIN STEM W/O CONTRAST MATERIAL 03/18/2020 12:00:00 AM EDT [facility] ([facility], ) Results ID Date Data Source [id number] 08/11/2020 12:00:00 AM EST [facility] Name Value Range Interpretation Code Description Data Lilo rce(s) Supporting Document(s) SARS coronavirus 2 RNA [Presence] in Res piratory specimen by SARATH with probe detection [facility] This lab was ordered by [facility] and reported by [employer]. ID Date Data Source [id number] 06/03/2020 11:03:00 AM EDT [facility] ([facility]) Name Value Range Interpretation Code Description Data Lilo rce(s) Supporting Document(s) Urine Creatinine 258.7 mg/dL 30.0-125.0 [facility] ([facility]) Microalbumin Urine 37.4 mg/L 1.3-20.0 [facility] ([facility]) Microalb/Creat Ratio 14.5 ug/mg 0.0-30.0 [facility] ( [facility]) ID Date Data Source [id number] 06/03/2020 11:03:00 AM EDT [facility] ([facility]) Name Value Range Interpretation Code Description Data Lilo rce(s) Supporting Document(s) Glucose [Mass/volume] in Serum or Plasma 225 mg/dL 74-99 [facility] ([facility]) 100-125 mg/dL PRE-DIABETES/FASTING >126 mg/dL DIABETES/FASTING Urea nitrogen [Mass/volume] in Serum or Plasma 10 mg/dL 7-18 [facility] ([facility]) Sodium [Moles/volume] in Serum or Plasma 140 meq/L 136-145 [facility] ([facility]) Chloride [Moles/volume] in Serum or Plasma 101 meq/L 98-107 [facility] ([facility]) Potassium [Moles/volume] in Serum or Plasma 4.1 meq/L 3.5-5.1 [facility] ([facility]) Creatinine 0.7 mg/dL 0.6-1.3 [facility]) Alkaline phosphatase isoenzyme [Units/volume] in Serum or Pl asma 71 mg/dL 46-116 [facility] ([facility]) Carbon dioxide, total [Moles/volume] in Serum or Plasma 29 meq/L 21 -32 [facility] ([facility]) Calcium [Mass/volume] in Serum or Plasma 8.6 mg/dL 8.5-10.1 [facility] ([facility]) Total Bilirubin 0.5 mg/dL 0.2-1.0 [facility] ([facility]) Aspartate aminotransferase [Enzymatic activity/volume] in Serum or Plasma 26 U/L 15-37 [facility] ([facility] ) Alanine aminotransferase [Enzymatic activity/volume] in Seru m or Plasma 31 U/L 12-78 [facility] ([facility]) Proteinase 3 Ab [Units/volume] in Serum 7.4 g/dL 6.4-8.2 [facility] ([facility]) Albumin [Mass/volume] in Serum or Plasma 3.5 g/dL 3.4-5.0 [facility] ([facility]) A/G Ratio 0.90 CALC 1.00-1.90 [facility] ([facility]) Glomerular filtration rate/1.73 sq M pre dicted among non-blacks [Volume Rate/Area] in Serum or Plasma by Creatinine-based formula (MDRD) Laboratory test result [facility] ([facility] ) Glomerular filtration rate/1.73 sq M pre dicted among blacks [Volume Rate/Area] in Serum or Plasma by Creatinine-based formula (MDRD) Laboratory test result [facility] ([facility]) <content>CHRONIC KIDNEY DISEASE STAGING PER NKF</content>
<content></content>
<content>STAGE I & II GFR >= 60 NORMAL TO MILDLY DECREASED</content>
<content>STAGE III GFR 30-59 MODERATELY DECREASED</content>
<content>STAGE IV GFR 15-29 SEVERELY DECREASED</content>
<content>STAGE V GFR <15 VERY LITTLE GFR LEFT</content>
<content>ESRD GFR <15 ON BRAIDING OPERATOR</content>
<content></content> ID Date Data Source [id number] 06/03/2020 11:03:00 AM EDT [facility] ([facility]) Name Value Range Interpretation Code Description Data Lilo rce(s) Supporting Document(s) Hemoglobin A1c/Hemoglobin.total in Blood 10.2 % [facility] ([facility]) Lab Result Notes: Pre-Diabetes 5.7 - 6.4 % Diabetes = or > 6.5% Glucose mean value [Mass/volume] in Blood Estimated fr om glycated hemoglobin 246 mg/dL 60-110 [facility] ([facility] ) ID Date Data Source [id number] 06/03/2020 11:03:00 AM EDT [facility] ([facility]) Name Value Range Interpretation Code Description Data Lilo rce(s) Supporting Document(s) Hemoglobin A1c/Hemoglobin.total in Blood Laboratory test result [facility] ID Date Data Source [id number] 05/10/2020 10:03:00 AM EDT [facility] DATE OF EXAM: 05/10/2020Date of Procedur e: 05/10/2020Preoperative Diagnosis: Evaluate for possible left PComm aneurysm versus infundibulumPostoperative Diagnosis: Evaluate for possible left PComm aneurysm versus infundibulum Procedure(s):1. Diagnostic cerebral angiogram: - Left CCA cervical (2D); Left ICA cerebral (2D/3D); Right femoral runoff (2D)2. Conscious sedation for 11 minutes3. Right femoral 6F AngioSeal device placed for arteriotomy closure Surgeon: Eloy Dale MDAssistant: RT Louise Prior problems with sedation: NonePotential drug/sedative interactions: NoneAllergies: Sulfa, Imitrex, Melatonin Mallampati class IIIASA class III Medications/Sedation: 1 mg of versed IV; 50 mcg of fentanyl IV; 4mg Zofran IV Indication: Mrs. Malou Santos is a very pleasant 50 year-old female who was referred to me by Dr. 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 A formal diagnostic cerebral angiogram study was offered for further workup of this finding. The risks, benefits and alternatives of this procedure were explained to the patient and her questions were answered to her satisfaction. She understands and agrees to proceed with the diagnostic cerebral angiogram. Written informed consent was obtained prior to proceeding with the angiogram. Procedure details: The patient was properly identified by comparing the signed consent with the name bracelet to confirm the proper medical record number, date of , and patient name and when this was confirmed the patient was placed on the Tosyet[employer] biplane angio table in supine position. The right groin site was prepped and draped in usual fashion and a timeout was performed, confirming again the correct patient and procedure being performed. Conscious sedation was administered and 10 cc of 2% lidocaine without epinephrine was injected into the right groin site around the femoral artery and an arteriotomy was performed using the modified Seldinger technique with a 5 Vietnamese micropuncture kit. I then placed a 5 Vietnamese sheath into the right femoral artery without any complications or difficulties. I then placed the 4 Vietnamese angled glide catheter over a glide wire to the aortic arch and then removed the glide wire and double flushed the catheter by aspirating back with one saline syringe, and then flushing forward with clean heparinized saline syringe. I then accessed the left common carotid artery and performed a cervical diagnostic angiogram which demonstrates a normal left carotid bifurcation without evidence of hemodynamically significant arterial stenosis, dissection or occlusion appreciated, with normal anterograde blood flow present. I then selectively catheterized the left internal carotid artery over a glidewire using roadmapping techniques under fluoroscopic guidance. I then performed a cerebral diagnostic angiogram from the left internal carotid artery injection which demonstrates normal filling of the left MCA and ASHLEY territories without evidence of intracranial aneurysms, early venous drainage, hemodynamically significant intracranial arterial stenosis or occlusion or significant vessel irregularity to clearly show vasospasm or vasculitis. There is very little cross filling of contrast to the contralateral ASHLEY territory seen on this angiogram demonstrating a very small anterior communicating artery. There is a very small left posterior communicating artery seen with no significant contribution to the posterior circulation. There is a moderate sized infundibulum at the origin of the left posterior communicating artery appreciated. A 3D cerebral angiogram from the left internal carotid artery injection was performed which confirms the findings from the 2D cerebral angiogram runs noted above. The 3D imaging was processed and interpreted on an independent [employer] workstation. At the end of the procedure I then completely removed the catheter from the patient and performed a right femoral runoff to confirm that there were no complications at the femoral arteriotomy access site. Using a wire exchange technique, I removed the femoral sheath and placed a 6 Vietnamese AngioSeal device in the right femoral arteriotomy site without complications. The patient tolerated this procedure well. I was present for the duration of the procedure and I performed and/or directly supervised all critical components of the procedure. Total contrast: 40 cc of Omnipaque-300Total fluoro time: 0.9 minutesTotal fluoro dose: 236.67 mGy Angiographic interpretation:1. Left common carotid cervical angiography shows a normal carotid bifurcation without evidence of stenosis, dissection, or other vascular abnormalities, and with normal anterograde blood flow. 2. Selective left internal carotid artery catheterization with cerebral views shows normal filling of the left MCA and ASHLEY territories without evidence of intracranial aneurysms, early venous drainage, hemodynamically significant intracranial arterial stenosis or occlusion or significant vessel irregularity to clearly show vasospasm or vasculitis. There is very little cross filling of contrast to the contralateral ASHLEY territory seen on this angiogram demonstrating a very small anterior communicating artery. There is a very small left posterior communicating artery seen with no significant contribution to the posterior circulation. There is a moderate sized infundibulum at the origin of the left posterior communicating artery appreciated. A 3D cerebral angiogram from the left internal carotid artery injection was performed which confirms the findings from the 2D cerebral angiogram runs noted above. The 3D imaging was processed and interpreted on an independent [employer] workstation. 3. Right femoral runoff angiogram showed the arteriotomy access site located over the mid femoral head and there is no significant peripheral vascular disease, calcification, or stenosis. The sheath was inserted above the femoral bifurcation. Impression: Mrs. Malou Santos had an uneventful left carotid cerebral angiogram study which shows a left PComm infundibulum and no true cerebral aneurysm identified. There is no need for further routine imaging of this finding and she can follow up with me on an as needed basis at this point. I relayed the results of this angiogram to the patient and to her over the phone at the end of the procedure, and I answered all of their questions to their satisfaction. They understand and agree with this plan.End of diagnostic report for accession: [id number] Interpreted: Eloy Dale MDTranscribed: 05/10/2020 08:45 AMSigned: 05/10/2020 10:03 AM Eloy Dale MD [facility] # [id number] BILL # [id number] [facility] Name Value Range Interpretation Code Description Data Lilo rce(s) Supporting Document(s) ID Date Data Source [id number] 05/10/2020 07:28:47 AM EDT [facility] [place] [facility] Name Value Range Interpretation Code Description Data Lilo rce(s) Supporting Document(s) POC GLUCOSE 310 mg/dL (70-99) H [facility] [place] [facility] PERFORMED BY CLINICAL STAFF ID Date Data Source [id number] 05/05/2020 09:00:00 AM EDT [facility] ([facility]) Name Value Range Interpretation Code Description Data [facility] rce(s) Supporting Document(s) Coronavirus 2019 Nasopharygeal Laboratory test result [facility] ([facility]) This nucleic acid amplification test was developed and its performance characteristics determined by [employer]. Nucleic acid amplification tests include PCR and TMA. This test has not been FDA cleared or approved. This test has been authorized by FDA under an Emergency Use Authorization (EUA). This test is only authorized for the duration of time the declaration that circumstances exist justifying the authorization of the emergency use of in vitro diagnostic tests for detection of SARS-CoV-2 virus and/or diagnosis of COVID-19 infection under section 564(b)(1) of the Act, 21 U.S.C. 360bbb-3 (b) (1), unless the authorization is terminated or revoked sooner. When diagnostic testing is negative, the possibility of a false negative result should be considered in the context of a patient's recent exposures and the presence of clinical signs and symptoms consistent with COVID-19. An individual without symptoms of COVID-19 and who is not shedding SARS-CoV-2 virus would expect to have a negative (not detected) result in this assay. Performed at: [facility] [id number] Reporting Developer: Tash Banegas MD, Phone: [phone] Not Detected ID Date Data Source [id number] 05/05/2020 09:00:00 AM EDT [facility] ([facility]) Name Value Range Interpretation Code Description Data Lilo rce(s) Supporting Document(s) Laboratory test finding (navigational concept) Laboratory test result [facility] ([facility]) This nucleic acid amplification test was developed and its performance characteristics determined by [employer]. Nucleic acid amplification tests include PCR and TMA. This test has not been FDA cleared or approved. This test has been authorized by FDA under an Emergency Use Authorization (EUA). This test is only authorized for the duration of time the declaration that circumstances exist justifying the authorization of the emergency use of in vitro diagnostic tests for detection of SARS-CoV-2 virus and/or diagnosis of COVID-19 infection under section 564(b)(1) of the Act, 21 U.S.C. 360bbb-3 (b) (1), unless the authorization is terminated or revoked sooner. When diagnostic testing is negative, the possibility of a false negative result should be considered in the context of a patient's recent exposures and the presence of clinical signs and symptoms consistent with COVID-19. An individual without symptoms of COVID-19 and who is not shedding SARS-CoV-2 virus would expect to have a negative (not detected) result in this assay. Performed at: [facility] [id number] Reporting Developer: Tash Banegas MD, Phone: [phone] Not Detected ID Date Data Source [id number] 05/05/2020 09:00:00 AM EDT [facility] Name Value Range Interpretation Code Description Data Lilo rce(s) Supporting Document(s) SARS coronavirus 2 RNA [facility] This lab was ordered by [facility] and reported by [facility]. ID Date Data Source [id number] 05/02/2020 04:29:00 PM EDT [facility] Name Value Range Interpretation Code Description Data Lilo rce(s) Supporting Document(s) aPTT in Platelet poor plasma by Coagulation assay 28.2 s 25.0-38.4 Normal (applies to non-numeric results) [facility]) ID Date Data Source [id number] 05/02/2020 04:29:00 PM EDT [facility]) Name Value Range Interpretation Code Description Data Lilo rce(s) Supporting Document(s) Inr 0.90 Normal (applies to non-numeric resul ts) [facility] ([facility]) THERAPUTIC HUMAN INR VALUES INDICATIONS NORMAL RANGES PROPHYLAXIS/TREATMENT OF: VENOUS THROMBOSIS 2.0-3.0 PULMONARY EMBOLISM 2.0-3.0 PREVENTION OF SYSTEMIC EMBOLISM FROM: TISSUE HEART VALVES 2.0-3.0 ACUTE MYOCARDIAL INFARCTION 2.0-3.0 VALVULAR HEART DISEASE 2.0-3.0 ATRIAL FIBRILLATION 2.0-3.0 MECHANICAL VALVES(HIGH RISK) 2.5-3.5 RECURRENT MYOCARDIAL INFARCTION 2.5-3.5 Prothrombin Time 12.4 s 11.8-14.0 Normal (applies to non-numeric results) [facility]) ID Date Data Source [id number] 05/02/2020 04:29:00 PM EDT [facility]) Name Value Range Interpretation Code Description Data [facility] rce(s) Supporting Document(s) Creatinine For GFR 0.80 mg/dL 0.55-1.30 Normal (applies to non -numeric results) [facility]) Glucose, Fasting 263 mg/dL 70-100 Above high normal [facility]) Blood Urea Nitrogen 15 mg/dL 7-18 Normal (applies to non-nume peggy results) [facility]) Potassium Serum 4.3 meq/L 3.5-5.1 Normal (applies to non-numeric results) [facility]) Sodium Level 135 meq/L 136-145 Below low normal [facility]) Glomerular Filtration Rate Laboratory test result Normal (applies to non- numeric results) [facility]) <content>Units are mL/min/1.73 m2</content>
<content></content>
<content>Chronic Kidney Disease Staging per NKF:</content>
<content></content>
<content>Stage I & II GFR >=60 Normal to Mildly Decreased</content>
<content>Stage III GFR 30- 59 Moderately Decreased</content>
<content>Stage IV GFR 15-29 Severely Decreased</content>
<content>Stage V GFR <15 Very Little GFR Left</content>
<content>ESRD GFR <15 on BRAIDING OPERATOR</content>
<content></content> Anion Gap 4 meq/L 8-16 Below low normal [facility]) Chloride Level 99 meq/L 98-107 Normal (applies to non-numeric r esults) [facility]) Calcium Level 8.8 mg/dL 8.5-10.1 Normal (applies to non-numeric re sults) [facility]) Carbon Dioxide Level 32 meq/L 21-32 Normal (applies to non-num layton results) [facility]) ID Date Data Source [id number] 05/02/2020 04:29:00 PM EDT [facility]) Name Value Range Interpretation Code Description Data Lilo rce(s) Supporting Document(s) Hemoglobin 14.4 g/dL 12.0-15.5 Normal (applies to non-numeric resul ts) [facility]) Red Blood Count 4.54 10 4.00-5.40 Normal (applies to non-numeric results) [facility]) Hematocrit 42.6 % 36.0-47.0 Normal (applies to non-numeric resul ts) [facility]) White Blood Count 11.4 10 4.0-10.0 Above high normal [facility]) Mean Corpuscular HGB Conc 33.8 g/dL 32.0-36.5 Normal (applies to non-numeric results) [facility]) Mean Corpuscular Volume 93.8 fl 80.0-96.0 Normal ( applies to non-numeric results) [facility]) Mean Corpuscular Hemoglobin 31.7 pg 27.0-33.0 Norm al (applies to non-numeric results) [facility]) Red Cell Distribution Width 12.2 % 11.5-14.5 Norm al (applies to non-numeric results) [facility]) Platelet Count, Automated 246 10 150-450 Normal (applies to non-numeric results) [facility] ([facility]) Neutrophils % 58.6 % 36.0-66.0 Normal (applies to non-numeric re sults) [facility] ([facility]) Baso % 0.7 % 0.0-1.0 Normal (applies to non-numeric resul ts) [facility] ([facility]) Cassia % 5.9 % 0.0-5.0 Above high normal [facility] ([facility]) Lymph % 30.4 % 24.0-44.0 Normal (applies to non-numeric resul ts) [facility] ([facility]) Eos % 4.0 % 0.0-3.0 Above high normal [facility] ([facility]) Immature Granulocyte % 0.4 % 0-3.0 Normal (applies to non-n umeric results) [facility] ([facility]) Nucleated Red Blood Cell % 0.0 % 0-0 Normal (applies to n on-numeric results) [facility] ([facility]) Neutrophils # 6.7 10 1.5-8.5 Normal (applies to non-numeric re sults) [facility] ([facility]) Eos # 0.5 10 0.0-0.5 Normal (applies to non-numeric resul ts) [facility] ([facility]) Baso # 0.1 10 0.0-0.2 Normal (applies to non-numeric resul ts) [facility] ([facility]) Lymph # 3.5 10 1.5-5.0 Normal (applies to non-numeric resul ts) [facility] ([facility]) Cassia # 0.7 10 0.0-0.8 Normal (applies to non-numeric resul ts) [facility] ([facility]) ID Date Data Source [id number] 04/08/2020 03:06:00 PM EDT [facility] ([facility]) Name Value Range Interpretation Code Description Data Lilo rce(s) Supporting Document(s) Glucose [Mass/volume] in Serum or Plasma 222 mg/dL 74-99 [facility] ([facility]) 100-125 mg/dL PRE-DIABETES/FASTING >126 mg/dL DIABETES/FASTING Urea nitrogen [Mass/volume] in Serum or Plasma 13 mg/dL 7-18 [facility] ([facility]) Creatinine 0.8 mg/dL 0.6-1.3 [facility] ([facility]) Sodium [Moles/volume] in Serum or Plasma 137 meq/L 136-145 [facility] Potassium [Moles/volume] in Serum or Plasma 4.2 meq/L 3.5-5.1 [facility] Carbon dioxide, total [Moles/volume] in Serum or Plasma 31 meq/L 21 -32 [facility] Chloride [Moles/volume] in Serum or Plasma 99 meq/L 98-107 [facility] Glomerular filtration rate/1.73 sq M pre dicted among non-blacks [Volume Rate/Area] in Serum or Plasma by Creatinine-based formula (MDRD) Laboratory test result [facility] ([facility] ) Calcium [Mass/volume] in Serum or Plasma 9.3 mg/dL 8.5-10.1 [facility] ([facility]) Glomerular filtration rate/1.73 sq M pre dicted among blacks [Volume Rate/Area] in Serum or Plasma by Creatinine-based formula (MDRD) Laboratory test result [facility] ([facility]) <content>CHRONIC KIDNEY DISEASE STAGING PER NKF</content>
<content></content>
<content>STAGE I & II GFR >= 60 NORMAL TO MILDLY DECREASED</content>
<content>STAGE III GFR 30-59 MODERATELY DECREASED</content>
<content>STAGE IV GFR 15-29 SEVERELY DECREASED</content>
<content>STAGE V GFR <15 VERY LITTLE GFR LEFT</content>
<content>ESRD GFR <15 ON BRAIDING OPERATOR</content>
<content></content> ID Date Data Source [id number] 02/12/2020 08:36:00 AM EDT [facility] Name Value Range Interpretation Code Description Data Lilo rce(s) Supporting Document(s) Hemoglobin A1c/Hemoglobin.total in Blood 7.9 g/dL 4.8-5.6 [facility] ([facility] Lab Result Notes: Pre-Diabetes 5.7 - 6.4 % Diabetes = or > 6.5% Glucose mean value [Mass/volume] in Blood Estimated fr om glycated hemoglobin 180 mg/dL 60-110 [facility] ([facility] ) ID Date Data Source [id number] 02/12/2020 08:36:00 AM EDT [facility] ([facility]) Name Value Range Interpretation Code Description Data Lilo rce(s) Supporting Document(s) Cholesterol [Mass/volume] in Serum or Plasma 193 mg/dL 131-200 [facility] ([facility]) Cholesterol in HDL [Mass/volume] in Serum or Plasma 35 mg/dL 35-60 [facility] ([facility]) Triglyceride [Mass/volume] in Serum or Plasma 246 mg/dL 30-150 [facility] ([facility]) Cholesterol in LDL [Mass/volume] in Serum or Plasma by calcu lation 109 CALC 50-159 [facility] ([facility]) ID Date Data Source [id number] 02/12/2020 08:36:00 AM EDT [facility] ([facility]) Name Value Range Interpretation Code Description Data Lilo rce(s) Supporting Document(s) Glucose [Mass/volume] in Serum or Plasma 134 mg/dL 74-99 [facility] ([facility]) 100-125 mg/dL PRE-DIABETES/FASTING >126 mg/dL DIABETES/FASTING Sodium [Moles/volume] in Serum or Plasma 140 meq/L 136-145 [facility] ([facility]) Creatinine 0.6 mg/dL 0.6-1.3 [facility] ([facility]) Urea nitrogen [Mass/volume] in Serum or Plasma 12 mg/dL 7-18 [facility] ([facility]) Calcium [Mass/volume] in Serum or Plasma 8.7 mg/dL 8.5-10.1 [facility] ([facility]) Potassium [Moles/volume] in Serum or Plasma 4.1 meq/L 3.5-5.1 [facility] ([facility]) Chloride [Moles/volume] in Serum or Plasma 100 meq/L 98-107 [facility] ([facility]) Carbon dioxide, total [Moles/volume] in Serum or Plasma 29 meq/L 21 -32 [facility] ([facility]) Total Bilirubin 0.4 mg/dL 0.2-1.0 [facility] ([facility]) Alkaline phosphatase isoenzyme [Units/volume] in Serum or Pl asma 68 mg/dL 46-116 [facility] ([facility]) Aspartate aminotransferase [Enzymatic activity/volume] in Serum or Plasma 20 U/L 15-37 [facility] ([facility] ) Alanine aminotransferase [Enzymatic activity/volume] in Seru m or Plasma 24 U/L 12-78 [facility] ([facility]) Proteinase 3 Ab [Units/volume] in Serum 7.4 g/dL 6.4-8.2 [facility] A/G Ratio 0.90 CALC 1.00-1.90 [facility]) Albumin [Mass/volume] in Serum or Plasma 3.5 g/dL 3.4-5.0 [facility] ([facility]) Glomerular filtration rate/1.73 sq M pre dicted among blacks [Volume Rate/Area] in Serum or Plasma by Creatinine-based formula (MDRD) Laboratory test result [facility] <content>CHRONIC KIDNEY DISEASE STAGING PER NKF</content>
<content></content>
<content>STAGE I & II GFR >= 60 NORMAL TO MILDLY DECREASED</content>
<content>STAGE III GFR 30-59 MODERATELY DECREASED</content>
<content>STAGE IV GFR 15-29 SEVERELY DECREASED</content>
<content>STAGE V GFR <15 VERY LITTLE GFR LEFT</content>
<content>ESRD GFR <15 ON BRAIDING OPERATOR</content>
<content></content> Glomerular filtration rate/1.73 sq M pre dicted among non-blacks [Volume Rate/Area] in Serum or Plasma by Creatinine-based formula (MDRD) Laboratory test result [facility] ([facility] ) ID Date Data Source [id number] 10/23/2019 09:11:00 AM EST [facility] ([facility]) Name Value Range Interpretation Code Description Data Lilo rce(s) Supporting Document(s) Thyroxine (T4) free [Mass/volume] in Serum or Plasma 1.02 ng/dL 0.76- 1.46 [facility] ID Date Data Source [id number] 10/23/2019 09:11:00 AM EST [facility] ([facility]) Name Value Range Interpretation Code Description Data Lilo rce(s) Supporting Document(s) Thyrotropin [Units/volume] in Serum or Plasma by Detec tion limit <= 0.05 mIU/L 1.34 uIU/mL 0.36-3.74 [facility] ([facility] ) ID Date Data Source [id number] 10/23/2019 09:11:00 AM EST [facility] ([facility]) Name Value Range Interpretation Code Description Data Lilo rce(s) Supporting Document(s) Hemoglobin [Mass/volume] in Blood 14.9 g/dL 12.0-18.0 [facility] ([facility]) Leukocytes [#/volume] in Blood by Automated count 10.9 x10*3/UL 4.1-1 0.9 [facility] Erythrocytes [#/volume] in Blood by Automated count 4.79 x10*6/UL 4.2 0-6.30 [facility] ([facility]) MCHC 34.2 g/dL 31.0-38.0 [facility]) MCV 91.1 fL 80.0-97.0 [facility] ([facility]) Hematocrit [Volume Fraction] of Blood by Automated count 43.7 % 3 7.0-51.0 [facility] ([facility]) MCH 31.2 pg 26.0-32.0 [facility] ([facility]) Erythrocyte distribution width [Ratio] by Automated count 13.0 % 11.6-13.7 [facility] ([facility]) MPV 8.3 FL 7.8-11.0 [facility] ([facility]) Platelets [#/volume] in Blood by Automated count 304 x10*3/UL 140-440 [facility] ([facility]) Mid % 6.1 % 1.7-9.3 [facility] ([facility]) Neut % 67.8 % 37.0-92.0 [facility] ([facility]) Lymph % 26.1 % 10.0-58.5 [facility]) Neut # 7.4 x10*3/UL 2.0-7.8 [facility] ([facility]) Lymph # 2.8 x10*3/UL 0.6-4.1 [facility] ([facility]) Mid # 0.7 x10*3/UL 0.1-0.6 [facility] ([facility]) ID Date Data Source [id number] 08/31/2019 09:40:00 AM EST [facility] ([facility]) Name Value Range Interpretation Code Description Data Lilo rce(s) Supporting Document(s) Calcidiol [Mass/volume] in Serum or Plasma 28.0 24.0-80.0 [facility] ([facility]) This test was performed using [employer] I P Vitamin D immunoassay kit. Values obtained with different assay methods should not be used interchangeably. ID Date Data Source [id number] 08/31/2019 09:40:00 AM EST [facility] ([facility]) Name Value Range Interpretation Code Description Data Lilo rce(s) Supporting Document(s) Microalbumin Urine 8.9 mg/L 1.3-20.0 [facility] ([facility] Microalb/Creat Ratio 5.1 ug/mg 0.0-30.0 [facility] Urine Creatinine 173.1 mg/dL 30.0-125.0 [facility] ([facility]) ID Date Data Source [id number] 08/31/2019 09:40:00 AM EST [facility] ([facility]) Name Value Range Interpretation Code Description Data Lilo rce(s) Supporting Document(s) Hemoglobin A1c/Hemoglobin.total in Blood 7.2 g/dL 4.8-5.6 [facility] ([facility]) Lab Result Notes: Pre-Diabetes 5.7 - 6.4 % Diabetes = or > 6.5% Glucose mean value [Mass/volume] in Blood Estimated fr om glycated hemoglobin 160 mg/dL 60-110 [facility] ([facility] ) ID Date Data Source [id number] 08/31/2019 09:40:00 AM EST [facility] ([facility]) Name Value Range Interpretation Code Description Data Lilo rce(s) Supporting Document(s) Triglyceride [Mass/volume] in Serum or Plasma 206 mg/dL 30-150 [facility] ([facility]) Cholesterol [Mass/volume] in Serum or Plasma 237 mg/dL 131-200 [facility] ([facility]) Cholesterol in HDL [Mass/volume] in Serum or Plasma 35 mg/dL 35-60 [facility] ([facility]) Cholesterol in LDL [Mass/volume] in Serum or Plasma by calcu lation 161 CALC 50-159 [facility] ([facility]) ID Date Data Source [id number] 08/31/2019 09:40:00 AM EST [facility] ([facility]) Name Value Range Interpretation Code Description Data Lilo rce(s) Supporting Document(s) Glucose [Mass/volume] in Serum or Plasma 135 mg/dL 74-99 [facility] ([facility]) 100-125 mg/dL PRE-DIABETES/FASTING >126 mg/dL DIABETES/FASTING Creatinine 0.7 mg/dL 0.6-1.3 [facility]) Sodium [Moles/volume] in Serum or Plasma 139 meq/L 136-145 [facility] ([facility]) Urea nitrogen [Mass/volume] in Serum or Plasma 11 mg/dL 7-18 [facility] ([facility]) Calcium [Mass/volume] in Serum or Plasma 9.3 mg/dL 8.5-10.1 [facility] ([facility]) Potassium [Moles/volume] in Serum or Plasma 4.5 meq/L 3.5-5.1 [facility] ([facility]) Chloride [Moles/volume] in Serum or Plasma 104 meq/L 98-107 [facility] ([facility]) Carbon dioxide, total [Moles/volume] in Serum or Plasma 28 meq/L 21 -32 [facility] ([facility]) Total Bilirubin 0.3 mg/dL 0.2-1.0 [facility] ([facility]) Alkaline phosphatase isoenzyme [Units/volume] in Serum or Pl asma 71 mg/dL 46-116 [facility] ([facility]) Aspartate aminotransferase [Enzymatic activity/volume] in Serum or Plasma 12 U/L 15-37 [facility] ([facility] ) Albumin [Mass/volume] in Serum or Plasma 3.8 g/dL 3.4-5.0 [facility] ([facility]) Alanine aminotransferase [Enzymatic activity/volume] in Seru m or Plasma 22 U/L 12-78 [facility] Proteinase 3 Ab [Units/volume] in Serum 7.9 g/dL 6.4-8.2 [facility] A/G Ratio 0.93 CALC 1.00-1.90 [facility]) Glomerular filtration rate/1.73 sq M pre dicted among blacks [Volume Rate/Area] in Serum or Plasma by Creatinine-based formula (MDRD) Laboratory test result [facility] <content>CHRONIC KIDNEY DISEASE STAGING PER NKF</content>
<content></content>
<content>STAGE I & II GFR >= 60 NORMAL TO MILDLY DECREASED</content>
<content>STAGE III GFR 30-59 MODERATELY DECREASED</content>
<content>STAGE IV GFR 15-29 SEVERELY DECREASED</content>
<content>STAGE V GFR <15 VERY LITTLE GFR LEFT</content>
<content>ESRD GFR <15 ON BRAIDING OPERATOR</content>
<content></content> Glomerular filtration rate/1.73 sq M pre dicted among non-blacks [Volume Rate/Area] in Serum or Plasma by Creatinine-based formula (MDRD) Laboratory test result [facility] ([facility] Procedure Social History Code Duration Value Status Description Data Source(s ) Smoking 04/30/2020 12:00:00 AM EDT Patient has n ever smoked (pipe, cigarette, cigar) completed Patient has never smoked (pipe, cigarett e, cigar) [facility] ([facility]) Vital Signs ID Date Data Source UNK Name Value Range Interpretation Code Description Data Source(s) Body mass index (BMI) [Ratio] 33.6 kg/m2 33.6 k g/m2 [facility] ([facility]) Oxygen saturation in Arterial blood by Pulse oximetry 98 % 98 % [facility] ([facility]) Body weight 178.00 [lb_av] 178.00 [lb_av] [facility] ([facility]) Body height 61 [in_i] 61 [in_i] [facility] ([facility]) 5'1" Heart rate 102 /min 102 /min [facility] ([facility]) Diastolic blood pressure 74 mm[Hg] 74 mm[Hg] [facility] ([facility]) Systolic blood pressure 118 mm[Hg] 118 mm[Hg] [facility] ([facility]) Diastolic blood pressure 74 mm[Hg] 74 mm[Hg] [facility] ([facility]) Systolic blood pressure 128 mm[Hg] 128 mm[Hg] [facility] ([facility]) Body mass index (BMI) [Ratio] 32.1 kg/m2 32.1 k g/m2 [facility] ([facility] ) Body weight 170.00 [lb_av] 170.00 [lb_av] [facility] ([facility], ) Body height 61 [in_i] 61 [in_i] [facility] ([facility], ) 5'1" Respiratory rate 12 /min 12 /min [facility] ( [facility] ) Body mass index (BMI) [Ratio] 31.7 kg/m2 31.7 k g/m2 [facility] ([facility]) Body weight 168.00 [lb_av] 168.00 [lb_av] [facility] Body height 61 [in_i] 61 [in_i] [facility] ([facility]) 5'1" Heart rate 98 /min 98 /min [facility] ([facility]) Diastolic blood pressure 78 mm[Hg] 78 mm[Hg] [facility] ([facility]) Systolic blood pressure 130 mm[Hg] 130 mm[Hg] [facility] ([facility]) Body mass index (BMI) [Ratio] 32.3 kg/m2 32.3 k g/m2 [facility] ([facility]) Oxygen saturation in Arterial blood by Pulse oximetry 98 % 98 % [facility] ([facility]) Air Body weight 171.00 [lb_av] 171.00 [lb_av] [facility] ([facility]) Body height 61 [in_i] 61 [in_i] [facility] ([facility]) 5'1" Heart rate 92 /min 92 /min [facility] ([facility]) Diastolic blood pressure 78 mm[Hg] 78 mm[Hg] [facility] ([facility]) Systolic blood pressure 104 mm[Hg] 104 mm[Hg] Shayne CARROLL ([facility])
[2020-09-24] MEDS ORDERED: PRIL20TA2 PO (07:00)
[2020-09-24] MEDS ORDERED: ALBU8.5H INH (07:00)
[2020-09-24] MEDS ORDERED: TRUL0.5I SC (07:01)
[2020-09-24 07:39] LABS: BASO # 0.1 10^3/uL (0.0-0.2); BASO % 0.9 % (0.0-1.0); EOS # 0.3 10^3/uL (0.0-0.5); EOS % 3.8 % (0.0-3.0); HEMATOCRIT 40.9 % (36.0-47.0); HEMOGLOBIN 13.8 g/dl (12.0-15.5); LYMPH % 32.9 % (24.0-44.0); MEAN CORPUSCULAR HEMOGLOBIN 30.3 pg (27.0-33.0); MEAN CORPUSCULAR HGB CONC 33.7 g/dl (32.0-36.5); MEAN CORPUSCULAR VOLUME 89.9 fl (80.0-96.0); MONO # 0.7 10^3/uL (0.0-0.8); MONO % 7.8 % (0.0-5.0); NEUTROPHILS # 4.9 10^3/uL (1.5-8.5); NEUTROPHILS % 53.9 % (36.0-66.0); PLATELET COUNT, AUTOMATED 222 10^3/uL (150-450); RED BLOOD COUNT 4.55 10^6/uL (4.00-5.40); WHITE BLOOD COUNT 9.1 10^3/uL (4.0-10.0)
[2020-09-24] MEDS ORDERED: ASPIRIN 81 MG CHEW TABLET PO ONE (07:45)
[2020-09-24] MEDS ORDERED: PANTOPRAZOLE 40MG TAB (PROTONIX) PO ONE (07:45)
[2020-09-24 07:50] LABS: ALBUMIN 3.3 GM/DL (3.2-5.2); ALT/SGPT 26 U/L (12-78); BILIRUBIN,DIRECT < 0.1 MG/DL (0.0-0.2); BILIRUBIN,TOTAL 0.2 MG/DL (0.2-1.0); BLOOD UREA NITROGEN 11 MG/DL (7-18); CALCIUM LEVEL 8.9 MG/DL (8.5-10.1); CARBON DIOXIDE LEVEL 26 MEQ/L (21-32); CHLORIDE LEVEL 99 MEQ/L (98-107); CK-MB VALUE MASS 1.2 NG/ML (<3.6); CPK CREATINE PHOSPHOKINASE 54 U/L (26-192); GLOMERULAR FILTRATION RATE > 60.0 (>58); GLUCOSE, FASTING 313 MG/DL (70-100); LIPASE 107 U/L (73-393); MB/CK RELATIVE INDEX 2.22 (< OR =4); POTASSIUM SERUM 3.9 MEQ/L (3.5-5.1); SODIUM LEVEL 136 MEQ/L (136-145); TOTAL PROTEIN 6.9 GM/DL (6.4-8.2); TROPONIN I < 0.02 NG/ML (< 0.10)
[2020-09-24 07:53] LABS: INR 0.83; PROTHROMBIN TIME 11.6 SECONDS (12.5-14.3)
--- NOTE | 2020-09-24 08:09 | ECGEPIP ---
[facility] - ED Test Date: 2020-09-24 Pat Name: GIULIA PEREZ Department: Room: - Gender: Female [employer] Operator: [email or web address] padron : [id number] Requested By: ROXANNE Monteiro Order Number: [id number] Reading MD: Luke Maldonado Measurements Intervals [place] Rate: 80 P: OK: 0 QRS: 43 QRSD: 83 T: 50 QT: 401 QTc: 464 Interpretive Statements SINUS RHYTHM NO PRIORS FOR COMPARISON Electronically Signed on 09-24-2020 8:08:52 EST by Luke Maldonado
--- NOTE | 2020-09-24 08:27 | REP ---
INDICATION: CHEST PAIN. COMPARISON: Comparison chest x-ray 26 March 2020. TECHNIQUE: Portable upright AP chest radiograph. FINDINGS: The lungs are well inflated and free of infiltrate. Pleural angles are sharp. Heart size is normal. Pulmonary vasculature is not increased. IMPRESSION: No active disease. <Electronically signed by Codey Goodwin > 09/24/20 [id number]
--- OUTSIDE RECORDS SUMMARY | 2020-09-24 08:46 | CCD ---
Author Author [facility] Organization [facility] Address Unknown Phone Unavailable Care Team Providers Care Prosthetist Name Role Phone Yohan Dale MD Unavailable [...] Unavailable Padalino, Yohan Loyns MD Unavailable Unavailable Yohan Dale MD Unavailable Unavailable PadalinYohan aquino MD Unavailable Unavailable Yohan Dale MD Unavailable Unavailable PadYohan velásquez MD Unavailable Unavailable Yohan Dale MD Unavailable Unavailable PadYohan velásquez MD Unavailable Unavailable PadYohan velásquez MD Unavailable Unavailable Yohan Dale MD Unavailable Unavailable PadYohan velásquez MD Unavailable Unavailable Yohan Dale MD Unavailable Unavailable Yohan Dale MD Unavailable Unavailable Yohan Dale MD Unavailable Unavailable PadalinYohan aquino MD Unavailable Unavailable PadalinoYohan MD Unavailable Unavailable Yohan Dale MD Unavailable Unavailable PadalinoYohan MD Unavailable Unavailable [...] Unavailable HugoNicole MD Unavailable Unavailable Lon, Radha STABBER Unavailable Unavailable Lon, Radha STABBER Unavailable Unavailable Lon, Radha STABBER Unavailable Unavailable Lon, Radha STABBER Unavailable Unavailable Lon, Radha STABBER Unavailable Unavailable Lon, Radha STABBER Unavailable Unavailable Lon, Radha STABBER Unavailable Unavailable Lon, Radha STABBER Unavailable Unavailable Lon, Radha STABBER Unavailable Unavailable Lon, Radha STABBER Unavailable Unavailable Lon, Radha STABBER Unavailable Unavailable Lon, Radha STABBER Unavailable Unavailable Lon, Radha STABBER Unavailable Unavailable Lon, Radha STABBER Unavailable Unavailable Lon, Radha STABBER Unavailable Unavailable Lon, Radha STABBER Unavailable Unavailable Lon, Radha STABBER Unavailable Unavailable Lon, Radha STABBER Unavailable Unavailable Lon, Radha STABBER Unavailable Unavailable Lon, Radha STABBER Unavailable Unavailable Lon, Radha STABBER Unavailable Unavailable Lon, Radha STABBER Unavailable Unavailable Lon, Radha STABBER Unavailable Unavailable Lon, Radha STABBER Unavailable Unavailable Lon, Radha STABBER Unavailable Unavailable Lon, Radha STABBER Unavailable Unavailable Lon, Radha STABBER Unavailable Unavailable Dave, Gudelia STABBER Unavailable Unavailable Dave, Gudelia STABBER Unavailable Unavailable Dave, Gudelia STABBER Unavailable Unavailable Dave, Gudelia STABBER Unavailable Unavailable Dave, Gudelia STABBER Unavailable Unavailable Dave, Gudelia STABBER Unavailable Unavailable Dave, Gudelia STABBER Unavailable Unavailable Dave, Gudelia STABBER Unavailable Unavailable Dave, Gudelia STABBER Unavailable Unavailable Dave, Gudelia STABBER Unavailable Unavailable Dave, Gudelia STABBER Unavailable Unavailable Dave, Gudelia STABBER Unavailable Unavailable Dave, Gudelia STABBER Unavailable Unavailable Dave, Gudelia STABBER Unavailable Unavailable Dave, Gudelia STABBER Unavailable Unavailable Dave, Gudelia STABBER Unavailable Unavailable Dave, Gudelia STABBER Unavailable Unavailable Dave, Gudelia STABBER Unavailable Unavailable Dave, Gudelia STABBER Unavailable Unavailable Dave, Gudelia STABBER Unavailable Unavailable Dave, Gudelia STABBER Unavailable Unavailable Dave, Gudelia STABBER Unavailable Unavailable Dave, Gudelia STABBER Unavailable Unavailable Dave, Gudelia STABBER Unavailable Unavailable Dave, Gudelia STABBER Unavailable Unavailable Dave, Gudelia STABBER Unavailable Unavailable Dave, Gudelia STABBER Unavailable Unavailable Dave, Gudelia STABBER Unavailable Unavailable Dave, Gudelia STABBER Unavailable Unavailable Dave, Gudelia STABBER Unavailable Unavailable Dave, Gudelia STABBER Unavailable Unavailable Dave, Gudelia STABBER Unavailable Unavailable Dave, Gudelia STABBER Unavailable Unavailable Dave, Gudelia STABBER Unavailable Unavailable Dave, Gudelia STABBER Unavailable Unavailable Dave, Gudelia STABBER Unavailable Unavailable Dave, Gudelia STABBER Unavailable Unavailable Dave, Gudelia STABBER Unavailable Unavailable Dave, Gudelia STABBER Unavailable Unavailable Dave, Guedlia STABBER Unavailable Unavailable Dave, Gudelia STABBER Unavailable Unavailable Dave, Gudelia STABBER Unavailable Unavailable Dave, Gudelia STABBER Unavailable Unavailable Dave, Gudelia STABBER Unavailable Unavailable Dave, Gudelia STABBER Unavailable Unavailable Dave, Gudelia STABBER Unavailable Unavailable Dave, Gudelia STABBER Unavailable Unavailable Dave, Gudelia STABBER Unavailable Unavailable Dave, Gudelia STABBER Unavailable Unavailable Dave, Gudelia STABBER Unavailable Unavailable Dave, Gudelia STABBER Unavailable Unavailable Dave, Gudelia STABBER Unavailable Unavailable Dave, Gudelia STABBER Unavailable Unavailable Padalino, Yohan Lyons MD Unavailable [...] is protected by Article 27-F of the [facility] Public Health law. If you continue you may have access to information: Regarding HIV / AIDS; Provided by facilities licensed or operated by the [facility] Office of Mental Health; or Provided by the [facility] Office for People With Developmental Disabilities. If such information is present, then the following [facility] mandated warning applies: This information has [...] Nicole GREENEeferrer: Radha WRIGHT 02/03/2021 12:00:00 AM [facility] Outpatient Attender: Radha Garsia 10:40:00 AM EDT [facility] ([facility] ) Outpatient Attender: Eloy Dale MD 05/10/2020 07:28:47 AM EDT [facility] Outpatient Attender: Eloy Dale MDAdmitter: Eloy kiser MD 05/10/2020 07:06:00 AM EDT - 05/10/2020 01:24:00 PM EDT CEREBRAL ANEURYSM, NONRUPTURED [facility] CEREBRAL ANEURYSM, NONRUPTURED Patient discharged. Outpatient Attender: 0000{ TORIE 05/10/2020 07:06:[address] [facility] Outpatient Attender: Eloy Dale MD CMP [facility] [place] 04/30/2020 02:00:00 PM EDT [facility] ([facility]) Outpatient Attender: Radha Garsia 03:00:00 PM EDT [facility] ([facility] ) Outpatient Attender: Gudelia Garsia 0 10/23/2019 07:30:00 AM EST [facility] ([facility] ) Outpatient Attender: Gudelia Garsia 0 08/31/2019 07:30:00 AM EST [facility] ([facility] ) Medications Medication Brand Name Start Date Product Form Dose Route Admi nistrative Instructions Pharmacy Instructions Status Indications Reaction Description Data Source(s) Lisinopril 10 MG Oral Tablet Lisinopril 04/08/2020 12:00:00 AM EDT ORAL active [facility] ([facility]) Aimovig Aimovig 02/29/2020 12:00:00 AM EDT active [facility] ([facility]) 0.5 ML dulaglutide 3 MG/ML Auto-Injector [Trulicity] Trulici ty 02/16/2020 12:00:00 AM EDT active M [facility]ENT ([facility]) Aimovig Aimovig 10/23/2019 12:00:00 AM EST active [facility] ([facility]) topiramate 25 MG Oral Tablet Topiramate 08/07/2019 12:00:00 AM EST ORAL active [facility] ([facility]) Metronidazole 500 MG Oral Tablet Metronidazole 05/19/2019 12:00:00 AM EDT ORAL completed [facility] ([facility]) Insurance Providers Payer name Policy type / Coverage type Policy ID Covered republican ID Covered republican's relationship to murray Policy Murray Plan Information [facility] FEDERAL EMPLOYEE PROGRAM [id number] SP [id number] [facility] FEDERAL B [id number] S [id number] [facility] HEA [id number] S [id number] [facility] FED[employer]AL [employer]EE PROGRAM [id number] SP [id number] [facility]/BS Commercial [id number] Self [id number] ANSI-Commercial [id number] ANSI-Commercial [id number] [facility]/ Commercial [id number] Self [id number] [facility] FED[employer]AL EM[employer]EE PROGRAM [id number] SP [id number] [facility] Federal Plan Commercial [id number] Self [id number] [facility] [id number] SP [id number] [facility] Federal Plan Commercial [id number] Self [id number] [facility] Federal Plan Commercial Self [facility]/ Commercial [id number] Self [id number] [facility] [id number] SP [id number] Surgeries/Procedures Procedure Description Date Indications Data Source(s) Angiography Internal Corotid Of The Ipsil Intrac Circulation 05/10/2020 12:00:00 AM EDT [facility] ([facility]) 3D RENDER W/INTERP CT/MRI/US/OTH EVERARDO W/POSTPROC 05/10 12:00:00 AM EDT [facility] ([facility]) Moderate Sedation Services; Same Phys Intl 15 Mins; PT >= 5 Years 05/10/2020 12:00:00 AM EDT [facility] ([facility]) NON-INVASIVE PHYSIOLOGIC STUDY EXTREMITY 3 LEVLS 04/24 12:00:00 AM EDT [facility] ([facility], ) NON-INVASIVE PHYSIOLOGIC STUDY EXTREMITY 3 LEVLS 04/24 12:00:00 AM EDT [facility] ([facility] ) NON-INVASIVE PHYSIOLOGIC STUDY EXTREMITY 3 LEVLS 04/24 12:00:00 AM EDT [facility] ([facility] ) NON-INVASIVE PHYSIOLOGIC STUDY EXTREMITY 3 LEVLS 04/24 12:00:00 AM EDT [facility] TSTG ANS FUNCJ CARDIOVAGAL INNERVAJ PARASYMP 0 12:00:00 AM EDT [facility] ([facility] ) TSTG ANS FUNCJ CARDIOVAGAL INNERVAJ PARASYMP 0 12:00:00 AM EDT [facility] ([facility] ) TESTING AUTONOMIC NERVOUS SYSTEM FUNCTION 04/24/2020 1 2:00:00 AM EDT [facility] ([facility] ) TESTING AUTONOMIC NERVOUS SYSTEM FUNCTION 04/24/2020 1 2:00:00 AM EDT [facility] ([facility] ) ELECTROENCEPHALOGRAM W/REC AWAKE&ASLEEP 03/19/2020 12: 00:00 AM EDT [facility] ([facility] ) ELECTROENCEPHALOGRAM W/REC AWAKE&ASLEEP 03/19/2020 12: 00:00 AM EDT [facility] ([facility] ) Magnetic Resonance Angiogtaphy Head W/O Contrast Material(S) 03/18/2020 12:00:00 AM EDT [facility] [place] Magnetic Resonance Angiogtaphy Head W/O Contrast Material(S) 03/18/2020 12:00:00 AM EDT [facility] ([facility] ) Magnetic Resonance Angiography Neck W/O And Then With Contra st ML 03/18/2020 12:00:00 AM EDT [facility] [place] Magnetic Resonance Angiography Neck W/O And Then With Contra st ML 03/18/2020 12:00:00 AM EDT [facility] [place] MRI BRAIN BRAIN STEM W/O CONTRAST MATERIAL 03/18/2020 12:00:00 AM EDT [facility] MRI BRAIN BRAIN STEM W/O CONTRAST MATERIAL 03/18/2020 12:00:00 AM EDT [facility] ([facility]) Results ID Date Data Source [id number] 08/11/2020 12:00:00 AM EST [facility] Name Value Range Interpretation Code Description Data Lilo rce(s) Supporting Document(s) SARS coronavirus 2 RNA [Presence] in Res piratory specimen by SARATH with probe detection [facility] This lab was ordered by [facility] and reported by [employer]. ID Date Data Source [id number] 06/03/2020 11:03:00 AM EDT [facility] ([facility]) Name Value Range Interpretation Code Description Data Lilo rce(s) Supporting Document(s) Urine Creatinine 258.7 mg/dL 30.0-125.0 [facility] ([facility]) Microalbumin Urine 37.4 mg/L 1.3-20.0 [facility] ([facility]) Microalb/Creat Ratio 14.5 ug/mg 0.0-30.0 [facility] ( [facility]) ID Date Data Source [id number] 06/03/2020 11:03:00 AM EDT [facility] ([facility]) Name Value Range Interpretation Code Description Data Lilo rce(s) Supporting Document(s) Glucose [Mass/volume] in Serum or Plasma 225 mg/dL 74-99 [facility] ([facility]) 100-125 mg/dL PRE-DIABETES/FASTING >126 mg/dL DIABETES/FASTING Urea nitrogen [Mass/volume] in Serum or Plasma 10 mg/dL 7-18 [facility] ([facility]) Sodium [Moles/volume] in Serum or Plasma 140 meq/L 136-145 [facility] ([facility]) Chloride [Moles/volume] in Serum or Plasma 101 meq/L 98-107 [facility] ([facility]) Potassium [Moles/volume] in Serum or Plasma 4.1 meq/L 3.5-5.1 [facility] ([facility]) Creatinine 0.7 mg/dL 0.6-1.3 [facility] Alkaline phosphatase isoenzyme [Units/volume] in Serum or Pl asma 71 mg/dL 46-116 [facility] ([facility]) Carbon dioxide, total [Moles/volume] in Serum or Plasma 29 meq/L 21 -32 [facility] ([facility]) Calcium [Mass/volume] in Serum or Plasma 8.6 mg/dL 8.5-10.1 [facility] ([facility]) Total Bilirubin 0.5 mg/dL 0.2-1.0 [facility] ([facility]) Aspartate aminotransferase [Enzymatic activity/volume] in Serum or Plasma 26 U/L 15-37 [facility] ([facility] ) Alanine aminotransferase [Enzymatic activity/volume] in Seru m or Plasma 31 U/L 12-78 [facility] ([facility]) Proteinase 3 Ab [Units/volume] in Serum 7.4 g/dL 6.4-8.2 [facility] ([facility]) Albumin [Mass/volume] in Serum or Plasma 3.5 g/dL 3.4-5.0 [facility] ([facility]) A/G Ratio 0.90 CALC 1.00-1.90 [facility]) Glomerular filtration rate/1.73 sq M pre dicted among non-blacks [Volume Rate/Area] in Serum or Plasma by Creatinine-based formula (MDRD) Laboratory test result [facility] ([facility] ) Glomerular filtration rate/1.73 sq M pre dicted among blacks [Volume Rate/Area] in Serum or Plasma by Creatinine-based formula (MDRD) Laboratory test result [facility] <content>CHRONIC KIDNEY DISEASE STAGING PER NKF</content>
<content></content>
<content>STAGE I & II GFR >= 60 NORMAL TO MILDLY DECREASED</content>
<content>STAGE III GFR 30-59 MODERATELY DECREASED</content>
<content>STAGE IV GFR 15-29 SEVERELY DECREASED</content>
<content>STAGE V GFR <15 VERY LITTLE GFR LEFT</content>
<content>ESRD GFR <15 ON PROCESS TECHNICIAN</content>
<content></content> ID Date Data Source [id number] 06/03/2020 11:03:00 AM EDT [facility] ([facility]) Name Value Range Interpretation Code Description Data Lilo rce(s) Supporting Document(s) Hemoglobin A1c/Hemoglobin.total in Blood 10.2 % [facility] Lab Result Notes: Pre-Diabetes 5.7 - 6.4 % Diabetes = or > 6.5% Glucose mean value [Mass/volume] in Blood Estimated fr om glycated hemoglobin 246 mg/dL 60-110 [facility] ([facility] ) ID Date Data Source [id number] 06/03/2020 11:03:00 AM EDT [facility] Name Value Range Interpretation Code Description Data Lilo rce(s) Supporting Document(s) Hemoglobin A1c/Hemoglobin.total in Blood Laboratory test result [facility] ID Date Data Source [id number] 05/10/2020 10:03:00 AM EDT [facility] DATE OF EXAM: 05/10/2020Date of [...] confirmed the patient was placed on the [employer] biplane angio table in supine position. The [...] the modified Seldinger technique with a 5 Mosotho micropuncture kit. I then placed a 5 Mosotho sheath into the right femoral artery without any complications or difficulties. I then placed the 4 Mosotho angled glide catheter over a glide wire [...] the femoral sheath and placed a 6 Mosotho AngioSeal device in the right femoral arteriotomy [...] this plan.End of diagnostic report for accession: [id number] Interpreted: Eloy Dale MDTranscribed: 05/10/2020 08:45 AMSigned: 05/10/2020 10:03 AM Eloy Dale MD [facility] # [id number] BILL # [id number] [facility] Name Value Range Interpretation Code Description Data Lilo rce(s) Supporting Document(s) ID Date Data Source [id number] 05/10/2020 07:28:47 AM EDT [facility] Name Value Range Interpretation Code Description Data Lilo rce(s) Supporting Document(s) POC GLUCOSE 310 mg/dL (70-99) H [facility] PERFORMED BY CLINICAL STAFF ID Date Data Source [id number] 05/05/2020 09:00:00 AM EDT [facility] ([facility]) Name Value Range Interpretation Code Description Data Lilo rce(s) Supporting Document(s) Coronavirus 2019 Nasopharygeal Laboratory test result [facility] ([facility]) This nucleic acid amplification test was developed and its performance characteristics determined by [facility]. Nucleic acid amplification tests include PCR and [...] result in this assay. Performed at: [facility] [id number] Chief Station Engineer: Tash Banegas MD, Phone: [phone] Not Detected ID Date Data Source [id number] 05/05/2020 09:00:00 AM EDT [facility] ([facility]) Name Value Range Interpretation Code Description Data Lilo rce(s) Supporting Document(s) Laboratory test finding (navigational concept) Laboratory [facility] This nucleic acid amplification test was developed and its performance characteristics determined by [facility]. Nucleic acid amplification tests include PCR and [...] detected) result in this assay. Performed at: [facility] [place] [id number] Chief Station Engineer: Tash Banegas MD, Phone: [phone] Not Detected ID Date Data Source [id number] 05/05/2020 09:00:00 AM EDT [facility] Name Value Range Interpretation Code Description Data Lilo rce(s) Supporting Document(s) SARS coronavirus 2 RNA [facility] This lab was ordered by [facility] and reported by [facility]. ID Date Data Source [id number] 05/02/2020 04:29:00 PM EDT [facility] Name Value Range Interpretation Code Description Data Lilo rce(s) Supporting Document(s) aPTT in Platelet poor plasma by Coagulation assay 28.2 s 25.0-38.4 Normal (applies to non-numeric results) [facility] ID Date Data Source [id number] 05/02/2020 04:29:00 PM EDT [facility] Name Value Range Interpretation Code Description Data Lilo rce(s) Supporting Document(s) Inr 0.90 Normal (applies to non-numeric resul ts) [facility]) THERAPUTIC HUMAN INR VALUES INDICATIONS NORMAL RANGES PROPHYLAXIS/TREATMENT OF: VENOUS THROMBOSIS 2.0-3.0 PULMONARY EMBOLISM 2.0-3.0 PREVENTION OF SYSTEMIC EMBOLISM FROM: TISSUE HEART VALVES 2.0-3.0 ACUTE MYOCARDIAL INFARCTION 2.0-3.0 VALVULAR HEART DISEASE 2.0-3.0 ATRIAL FIBRILLATION 2.0-3.0 MECHANICAL VALVES(HIGH RISK) 2.5-3.5 RECURRENT MYOCARDIAL INFARCTION 2.5-3.5 Prothrombin Time 12.4 s 11.8-14.0 Normal (applies to non-numeric results) [facility]) ID Date Data Source [id number] 05/02/2020 04:29:00 PM EDT [facility]) Name Value Range Interpretation Code Description Data Lilo rce(s) Supporting Document(s) Creatinine For GFR 0.80 mg/dL 0.55-1.30 Normal (applies to non -numeric results) [facility]) Glucose, Fasting 263 mg/dL 70-100 Above high normal M [facility]) Blood Urea Nitrogen 15 mg/dL 7-18 Normal (applies to non-nume peggy results) [facility]) Potassium Serum 4.3 meq/L 3.5-5.1 Normal (applies to non-numeric results) [facility]) Sodium Level 135 meq/L 136-145 Below low normal [facility]) Glomerular Filtration Rate Laboratory test result Normal (applies to non- numeric results) [facility]) <content>Units are mL/min/1.73 m2</content>
<content></content>
<content>Chronic Kidney Disease Staging per NKF:</content>
<content></content>
<content>Stage I & II GFR >=60 Normal to Mildly Decreased</content>
<content>Stage III GFR 30- 59 Moderately Decreased</content>
<content>Stage IV GFR 15-29 Severely Decreased</content>
<content>Stage V GFR <15 Very Little GFR Left</content>
<content>ESRD GFR <15 on PROCESS TECHNICIAN</content>
<content></content> Anion Gap 4 meq/L 8-16 Below low normal [facility]) Chloride Level 99 meq/L 98-107 Normal (applies to non-numeric r esults) [facility]) Calcium Level 8.8 mg/dL 8.5-10.1 Normal (applies to non-numeric re sults) [facility]) Carbon Dioxide Level 32 meq/L 21-32 Normal (applies to non-num layton results) [facility]) ID Date Data Source [id number] 05/02/2020 04:29:00 PM EDT [facility]) Name Value Range Interpretation Code Description Data Lilo rce(s) Supporting Document(s) Hemoglobin 14.4 g/dL 12.0-15.5 Normal (applies to non-numeric resul ts) [facility]) Red Blood Count 4.54 10 4.00-5.40 Normal (applies to non-numeric results) [facility]) Hematocrit 42.6 % 36.0-47.0 Normal (applies to non-numeric resul ts) [facility]) White Blood Count 11.4 10 4.0-10.0 Above high normal [facility]) Mean Corpuscular HGB Conc 33.8 g/dL 32.0-36.5 Normal (applies to non-numeric results) [facility]) Mean Corpuscular Volume 93.8 fl 80.0-96.0 Normal ( applies to non-numeric results) [facility]) Mean Corpuscular Hemoglobin 31.7 pg 27.0-33.0 Norm al (applies to non-numeric results) [facility]) Red Cell Distribution Width 12.2 % 11.5-14.5 Norm al (applies to non-numeric results) [facility]) Platelet Count, Automated 246 10 150-450 Normal (applies to non-numeric results) [facility]) Neutrophils % 58.6 % 36.0-66.0 Normal (applies to non-numeric re sults) [facility] ([facility]) Baso % 0.7 % 0.0-1.0 Normal (applies to non-numeric resul ts) [facility] ([facility]) [place] % 5.9 % 0.0-5.0 Above high normal [facility] ([facility]) Lymph % 30.4 % 24.0-44.0 Normal (applies to non-numeric resul ts) [facility] ([facility]) Eos % 4.0 % 0.0-3.0 Above high normal [facility] ([facility]) Immature Granulocyte % 0.4 % 0-3.0 Normal (applies to non-n umeric results) [facility] ([facility]) Nucleated Red Blood Cell % 0.0 % 0-0 Normal (applies to n on-numeric results) [facility] ([facility]) Neutrophils # 6.7 10 1.5-8.5 Normal (applies to non-numeric re sults) [facility] ([facility]) Eos # 0.5 10 0.0-0.5 Normal (applies to non-numeric resul ts) [facility] ([facility]) Baso # 0.1 10 0.0-0.2 Normal (applies to non-numeric resul ts) [facility] ([facility]) Lymph # 3.5 10 1.5-5.0 Normal (applies to non-numeric resul ts) [facility] ([facility]) [place] # 0.7 10 0.0-0.8 Normal (applies to non-numeric resul ts) [facility] ([facility]) ID Date Data Source [id number] 04/08/2020 03:06:00 PM EDT [facility] ([facility]) Name Value Range Interpretation Code Description Data Lilo rce(s) Supporting Document(s) Glucose [Mass/volume] in Serum or Plasma 222 mg/dL 74-99 [facility] ([facility]) 100-125 mg/dL PRE-DIABETES/FASTING >126 mg/dL DIABETES/FASTING Urea nitrogen [Mass/volume] in Serum or Plasma 13 mg/dL 7-18 [facility] ([facility]) Creatinine 0.8 mg/dL 0.6-1.3 [facility] ([facility]) Sodium [Moles/volume] in Serum or Plasma 137 meq/L 136-145 [facility] Potassium [Moles/volume] in Serum or Plasma 4.2 meq/L 3.5-5.1 [facility] Carbon dioxide, total [Moles/volume] in Serum or Plasma 31 meq/L 21 -32 [facility] Chloride [Moles/volume] in Serum or Plasma 99 meq/L 98-107 [facility] ([facility]) Glomerular filtration rate/1.73 sq M pre dicted among non-blacks [Volume Rate/Area] in Serum or Plasma by Creatinine-based formula (MDRD) Laboratory test result [facility] ([facility] ) Calcium [Mass/volume] in Serum or Plasma 9.3 mg/dL 8.5-10.1 [facility] ([facility]) Glomerular filtration rate/1.73 sq M pre dicted among blacks [Volume Rate/Area] in Serum or Plasma by Creatinine-based formula (MDRD) Laboratory test result [facility] ([facility]) <content>CHRONIC KIDNEY DISEASE STAGING PER NKF</content>
<content></content>
<content>STAGE I & II GFR >= 60 NORMAL TO MILDLY DECREASED</content>
<content>STAGE III GFR 30-59 MODERATELY DECREASED</content>
<content>STAGE IV GFR 15-29 SEVERELY DECREASED</content>
<content>STAGE V GFR <15 VERY LITTLE GFR LEFT</content>
<content>ESRD GFR <15 ON PROCESS TECHNICIAN</content>
<content></content> ID Date Data Source [id number] 02/12/2020 08:36:00 AM EDT [facility] ([facility]) Name Value Range Interpretation Code Description Data Lilo rce(s) Supporting Document(s) Hemoglobin A1c/Hemoglobin.total in Blood 7.9 g/dL 4.8-5.6 [facility] ([facility]) Lab Result Notes: Pre-Diabetes 5.7 - 6.4 % Diabetes = or > 6.5% Glucose mean value [Mass/volume] in Blood Estimated fr om glycated hemoglobin 180 mg/dL 60-110 [facility] ([facility] ) ID Date Data Source [id number] 02/12/2020 08:36:00 AM EDT [facility]) Name Value Range Interpretation Code Description Data Lilo rce(s) Supporting Document(s) Cholesterol [Mass/volume] in Serum or Plasma 193 mg/dL 131-200 [facility] ([facility]) Cholesterol in HDL [Mass/volume] in Serum or Plasma 35 mg/dL 35-60 [facility] ([facility]) Triglyceride [Mass/volume] in Serum or Plasma 246 mg/dL 30-150 [facility] ([facility]) Cholesterol in LDL [Mass/volume] in Serum or Plasma by calcu lation 109 CALC 50-159 [facility] ([facility]) ID Date Data Source [id number] 02/12/2020 08:36:00 AM EDT [facility] ([facility]) Name Value Range Interpretation Code Description Data Lilo rce(s) Supporting Document(s) Glucose [Mass/volume] in Serum or Plasma 134 mg/dL 74-99 [facility] ([facility]) 100-125 mg/dL PRE-DIABETES/FASTING >126 mg/dL DIABETES/FASTING Sodium [Moles/volume] in Serum or Plasma 140 meq/L 136-145 [facility] ([facility]) Creatinine 0.6 mg/dL 0.6-1.3 [facility] ([facility]) Urea nitrogen [Mass/volume] in Serum or Plasma 12 mg/dL 7-18 [facility] ([facility]) Calcium [Mass/volume] in Serum or Plasma 8.7 mg/dL 8.5-10.1 [facility] ([facility]) Potassium [Moles/volume] in Serum or Plasma 4.1 meq/L 3.5-5.1 [facility] ([facility]) Chloride [Moles/volume] in Serum or Plasma 100 meq/L 98-107 [facility] ([facility]) Carbon dioxide, total [Moles/volume] in Serum or Plasma 29 meq/L 21 -32 [facility] ([facility]) Total Bilirubin 0.4 mg/dL 0.2-1.0 [facility] ([facility]) Alkaline phosphatase isoenzyme [Units/volume] in Serum or Pl asma 68 mg/dL 46-116 [facility] ([facility]) Aspartate aminotransferase [Enzymatic activity/volume] in Serum or Plasma 20 U/L 15-37 [facility] ([facility] ) Alanine aminotransferase [Enzymatic activity/volume] in Seru m or Plasma 24 U/L 12-78 [facility] ([facility]) Proteinase 3 Ab [Units/volume] in Serum 7.4 g/dL 6.4-8.2 [facility] ([facility]) A/G Ratio 0.90 CALC 1.00-1.90 [facility] Albumin [Mass/volume] in Serum or Plasma 3.5 g/dL 3.4-5.0 [facility] ([facility]) Glomerular filtration rate/1.73 sq M pre dicted among blacks [Volume Rate/Area] in Serum or Plasma by Creatinine-based formula (MDRD) Laboratory test result [facility] <content>CHRONIC KIDNEY DISEASE STAGING PER NKF</content>
<content></content>
<content>STAGE I & II GFR >= 60 NORMAL TO MILDLY DECREASED</content>
<content>STAGE III GFR 30-59 MODERATELY DECREASED</content>
<content>STAGE IV GFR 15-29 SEVERELY DECREASED</content>
<content>STAGE V GFR <15 VERY LITTLE GFR LEFT</content>
<content>ESRD GFR <15 ON PROCESS TECHNICIAN</content>
<content></content> Glomerular filtration rate/1.73 sq M pre dicted among non-blacks [Volume Rate/Area] in Serum or Plasma by Creatinine-based formula (MDRD) Laboratory test result [facility] ([facility] ) ID Date Data Source [id number] 10/23/2019 09:11:00 AM EST [facility] ([facility]) Name Value Range Interpretation Code Description Data Lilo rce(s) Supporting Document(s) Thyroxine (T4) free [Mass/volume] in Serum or Plasma 1.02 ng/dL 0.76- 1.46 [facility] ID Date Data Source [id number] 10/23/2019 09:11:00 AM EST [facility] ([facility]) Name Value Range Interpretation Code Description Data Lilo rce(s) Supporting Document(s) Thyrotropin [Units/volume] in Serum or Plasma by Detec tion limit <= 0.05 mIU/L 1.34 uIU/mL 0.36-3.74 [facility] ([facility] ) ID Date Data Source [id number] 10/23/2019 09:11:00 AM EST [facility] ([facility]) Name Value Range Interpretation Code Description Data Lilo rce(s) Supporting Document(s) Hemoglobin [Mass/volume] in Blood 14.9 g/dL 12.0-18.0 [facility] ([facility]) Leukocytes [#/volume] in Blood by Automated count 10.9 x10*3/UL 4.1-1 0.9 [facility] ([facility]) Erythrocytes [#/volume] in Blood by Automated count 4.79 x10*6/UL 4.2 0-6.30 [facility] ([facility]) MCHC 34.2 g/dL 31.0-38.0 [facility] MCV 91.1 fL 80.0-97.0 [facility] Hematocrit [Volume Fraction] of Blood by Automated count 43.7 % 3 7.0-51.0 [facility] ([facility]) MCH 31.2 pg 26.0-32.0 [facility] ([facility]) Erythrocyte distribution width [Ratio] by Automated count 13.0 % 11.6-13.7 [facility] ([facility]) MPV 8.3 FL 7.8-11.0 [facility]) Platelets [#/volume] in Blood by Automated count 304 x10*3/UL 140-440 [facility] ([facility]) Mid % 6.1 % 1.7-9.3 [facility] Neut % 67.8 % 37.0-92.0 [facility] Lymph % 26.1 % 10.0-58.5 [facility] Neut # 7.4 x10*3/UL 2.0-7.8 [facility] ([facility]) Lymph # 2.8 x10*3/UL 0.6-4.1 [facility] ([facility]) Mid # 0.7 x10*3/UL 0.1-0.6 [facility] ([facility]) ID Date Data Source [id number] 08/31/2019 09:40:00 AM EST [facility] ([facility]) Name Value Range Interpretation Code Description Data Lilo rce(s) Supporting Document(s) Calcidiol [Mass/volume] in Serum or Plasma 28.0 24.0-80.0 [facility] ([facility]) This test was performed using [employer] I P Vitamin D immunoassay kit. Values obtained with different assay methods should not be used interchangeably. ID Date Data Source [id number] 08/31/2019 09:40:00 AM EST [facility] ([facility]) Name Value Range Interpretation Code Description Data Lilo rce(s) Supporting Document(s) Microalbumin Urine 8.9 mg/L 1.3-20.0 [facility] Microalb/Creat Ratio 5.1 ug/mg 0.0-30.0 [facility] Urine Creatinine 173.1 mg/dL 30.0-125.0 [facility] ([facility]) ID Date Data Source [id number] 08/31/2019 09:40:00 AM EST [facility] ([facility]) Name Value Range Interpretation Code Description Data Lilo rce(s) Supporting Document(s) Hemoglobin A1c/Hemoglobin.total in Blood 7.2 g/dL 4.8-5.6 [facility] ([facility]) Lab Result Notes: Pre-Diabetes 5.7 - 6.4 % Diabetes = or > 6.5% Glucose mean value [Mass/volume] in Blood Estimated fr om glycated hemoglobin 160 mg/dL 60-110 [facility] ([facility] ) ID Date Data Source [id number] 08/31/2019 09:40:00 AM EST [facility] ([facility]) Name Value Range Interpretation Code Description Data Lilo rce(s) Supporting Document(s) Triglyceride [Mass/volume] in Serum or Plasma 206 mg/dL 30-150 [facility] ([facility]) Cholesterol [Mass/volume] in Serum or Plasma 237 mg/dL 131-200 [facility] ([facility]) Cholesterol in HDL [Mass/volume] in Serum or Plasma 35 mg/dL 35-60 [facility] ([facility]) Cholesterol in LDL [Mass/volume] in Serum or Plasma by calcu lation 161 CALC 50-159 [facility] ([facility]) ID Date Data Source [id number] 08/31/2019 09:40:00 AM EST [facility] ([facility]) Name Value Range Interpretation Code Description Data Lilo rce(s) Supporting Document(s) Glucose [Mass/volume] in Serum or Plasma 135 mg/dL 74-99 [facility] ([facility]) 100-125 mg/dL PRE-DIABETES/FASTING >126 mg/dL DIABETES/FASTING Creatinine 0.7 mg/dL 0.6-1.3 [facility] ([facility]) Sodium [Moles/volume] in Serum or Plasma 139 meq/L 136-145 [facility] ([facility]) Urea nitrogen [Mass/volume] in Serum or Plasma 11 mg/dL 7-18 [facility] ([facility]) Calcium [Mass/volume] in Serum or Plasma 9.3 mg/dL 8.5-10.1 [facility] ([facility]) Potassium [Moles/volume] in Serum or Plasma 4.5 meq/L 3.5-5.1 [facility] ([facility]) Chloride [Moles/volume] in Serum or Plasma 104 meq/L 98-107 [facility] ([facility]) Carbon dioxide, total [Moles/volume] in Serum or Plasma 28 meq/L 21 -32 [facility] ([facility]) Total Bilirubin 0.3 mg/dL 0.2-1.0 [facility] ([facility]) Alkaline phosphatase isoenzyme [Units/volume] in Serum or Pl asma 71 mg/dL 46-116 [facility] ([facility]) Aspartate aminotransferase [Enzymatic activity/volume] in Serum or Plasma 12 U/L 15-37 [facility] ([facility] ) Albumin [Mass/volume] in Serum or Plasma 3.8 g/dL 3.4-5.0 [facility]) Alanine aminotransferase [Enzymatic activity/volume] in Seru m or Plasma 22 U/L 12-78 [facility] ([facility]) Proteinase 3 Ab [Units/volume] in Serum 7.9 g/dL 6.4-8.2 [facility] A/G Ratio 0.93 CALC 1.00-1.90 [facility] Glomerular filtration rate/1.73 sq M pre dicted among blacks [Volume Rate/Area] in Serum or Plasma by Creatinine-based formula (MDRD) Laboratory test result [facility] <content>CHRONIC KIDNEY DISEASE STAGING PER NKF</content>
<content></content>
<content>STAGE I & II GFR >= 60 NORMAL TO MILDLY DECREASED</content>
<content>STAGE III GFR 30-59 MODERATELY DECREASED</content>
<content>STAGE IV GFR 15-29 SEVERELY DECREASED</content>
<content>STAGE V GFR <15 VERY LITTLE GFR LEFT</content>
<content>ESRD GFR <15 ON PROCESS TECHNICIAN</content>
<content></content> Glomerular filtration rate/1.73 sq M pre dicted among non-blacks [Volume Rate/Area] in Serum or Plasma by Creatinine-based formula (MDRD) Laboratory test result [facility] Procedure Social History Code Duration Value Status Description Data Source(s ) Smoking 04/30/2020 12:00:00 AM EDT Patient has n ever smoked (pipe, cigarette, cigar) completed Patient has never smoked (pipe, cigarett e, cigar) [facility] Vital Signs ID Date Data Source UNK Name Value Range Interpretation Code Description Data Source(s) Body mass index (BMI) [Ratio] 33.6 kg/m2 33.6 k g/m2 [facility] ([facility]) Oxygen saturation in Arterial blood by Pulse oximetry 98 % 98 % [facility] ([facility]) Body weight 178.00 [lb_av] 178.00 [lb_av] [facility] ([facility]) Body height 61 [in_i] 61 [in_i] [facility]) 5'1" Heart rate 102 /min 102 /min [facility] ([facility]) Diastolic blood pressure 74 mm[Hg] 74 mm[Hg] [facility] ([facility]) Systolic blood pressure 118 mm[Hg] 118 mm[Hg] [facility] ([facility]) Diastolic blood pressure 74 mm[Hg] 74 mm[Hg] [facility] ([facility]) Systolic blood pressure 128 mm[Hg] 128 mm[Hg] [facility] ([facility]) Body mass index (BMI) [Ratio] 32.1 kg/m2 32.1 k g/m2 [facility] ([facility] ) Body weight 170.00 [lb_av] 170.00 [lb_av] [facility] ([facility] ) Body height 61 [in_i] 61 [in_i] [facility] ([facility] ) 5'1" Respiratory rate 12 /min 12 /min [facility] ( [facility] ) Body mass index (BMI) [Ratio] 31.7 kg/m2 31.7 k g/m2 [facility] ([facility]) Body weight 168.00 [lb_av] 168.00 [lb_av] [facility] ([facility]) Body height 61 [in_i] 61 [in_i] [facility] ([facility]) 5'1" Heart rate 98 /min 98 /min [facility] ([facility]) Diastolic blood pressure 78 mm[Hg] 78 mm[Hg] [facility] ([facility]) Systolic blood pressure 130 mm[Hg] 130 mm[Hg] [facility] ([facility]) Body mass index (BMI) [Ratio] 32.3 kg/m2 32.3 k g/m2 [facility] ([facility]) Oxygen saturation in Arterial blood by Pulse oximetry 98 % 98 % [facility] ([facility]) Air Body weight 171.00 [lb_av] 171.00 [lb_av] [facility] ([facility]) Body height 61 [in_i] 61 [in_i] [facility] ([facility]) 5'1" Heart rate 92 /min 92 /min [facility] ([facility]) Diastolic blood pressure 78 mm[Hg] 78 mm[Hg] [facility] ([facility]) Systolic blood pressure 104 mm[Hg] 104 mm[Hg] [facility] ([facility])
[2020-09-24 12:23] LABS: CK-MB VALUE MASS < 1.0 NG/ML (<3.6); CPK CREATINE PHOSPHOKINASE 46 U/L (26-192); MB/CK RELATIVE INDEX 2.17 (< OR =4); TROPONIN I < 0.02 NG/ML (< 0.10)
[2020-09-24 12:53] VITALS: BP 150/71
--- NOTE | 2020-09-24 16:30 | ECGEPIP ---
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
== END 2020-09-24 12:58 | disposition home or self-care (01) ==
LOC: M ED 06:37
DX: R07.89 Other chest pain (principal); E11.9 Type 2 diabetes mellitus without complications; I10 Essential (primary) hypertension; E78.5 Hyperlipidemia, unspecified; K21.9 Gastro-esophageal reflux disease without esophagitis; J45.909 Unspecified asthma, uncomplicated; G43.909 Migraine, unspecified, not intractable, without status migrainosus; Z82.49 Family history of ischemic heart disease and other diseases of the circulatory system; Z79.4 Long term (current) use of insulin; Z79.899 Other long term (current) drug therapy; Z88.2 Allergy status to sulfonamides; Z88.8 Allergy status to other drugs, medicaments and biological substances

== ENCOUNTER 2021-02-04 12:25 | Emergency (ER) | payer BC ==
[~2021-02-04] VITALS: Ht 154.9 cm; Wt 73.8 kg
[~2021-02-04 12:25] MED LIST changes: +ALBU8.5H INH; +PRIL20TA2 PO; +TRUL0.5I SC
[2021-02-04] MEDS ORDERED: COLE1TA PO (12:34)
[2021-02-04] MEDS ORDERED: BUPR150T12 (12:34)
[2021-02-04] MEDS ORDERED: ATOR1TAB21 (12:34)
[2021-02-04] MEDS ORDERED: TRES1INJ (12:34)
[2021-02-04] MEDS ORDERED: LISI-898 (12:34)
[2021-02-04 14:08] LABS: BASO % 0.2 % (0.0-1.0); EOS # 0.5 10^3/uL (0.0-0.5); EOS % 4.2 % (0.0-3.0); HEMOGLOBIN 14.8 g/dl (12.0-15.5); LYMPH # 3.1 10^3/uL (1.5-5.0); LYMPH % 26.9 % (24.0-44.0); MEAN CORPUSCULAR HEMOGLOBIN 31.1 pg (27.0-33.0); MEAN CORPUSCULAR HGB CONC 34.4 g/dl (32.0-36.5); MEAN CORPUSCULAR VOLUME 90.3 fl (80.0-96.0); MONO # 0.9 10^3/uL (0.0-0.8); MONO % 7.5 % (2.0-8.0); NEUTROPHILS # 7.1 10^3/uL (1.5-8.5); NEUTROPHILS % 60.9 % (36.0-66.0); PLATELET COUNT, AUTOMATED 257 10^3/uL (150-450); RED BLOOD COUNT 4.76 10^6/uL (4.00-5.40); WHITE BLOOD COUNT 11.7 10^3/uL (4.0-10.0)
[2021-02-04 14:37] LABS: ALBUMIN 3.6 GM/DL (3.2-5.2); ALT/SGPT 23 U/L (12-78); BILIRUBIN,DIRECT < 0.1 MG/DL (0.0-0.2); BILIRUBIN,TOTAL 0.3 MG/DL (0.2-1.0); LIPASE 53 U/L (73-393); TOTAL PROTEIN 7.2 GM/DL (6.4-8.2)
[2021-02-04] MEDS ORDERED: KETOROLAC 30 MG/ML 1ML VIAL IV ONE (15:40)
[2021-02-04] MEDS ORDERED: NS 1,000 ML IV ONE (15:40)
[2021-02-04] MEDS ORDERED: ISOVUE-370 76% 100ML VIAL As Ordered ONE (15:43)
--- NOTE | 2021-02-04 16:24 | REP ---
INDICATION: diarrhea, abdominal pain x4 days, r/o diverticulitis COMPARISON: 07/26/2011. TECHNIQUE: CT Scan of the abdomen and pelvis was performed with intravenous administration of 100 cc of Isovue 370, without oral contrast. Sagittal and coronal reconstruction images are performed. FINDINGS: Lung bases: Unremarkable. Liver: Normal Gallbladder: Prior cholecystectomy. Spleen: Normal. Adrenals: Normal. Pancreas: Normal. Kidneys: Normal. Small and large bowel: Unremarkable. Free fluid: None. Abdominal aorta: No aneurysm or dissection. Adenopathy: None. Appendix: Not inflamed. Osseous structures: Unremarkable. Pelvis: No mass. IMPRESSION: No acute findings in the abdomen or pelvis. <Electronically signed by Wilson Austin > 02/04/21 [id number]
[2021-02-04 17:22] VITALS: BP 123/69
== END 2021-02-04 17:50 | disposition home or self-care (01) ==
LOC: M ED 12:25
DX: R10.84 Generalized abdominal pain (principal); R11.10 Vomiting, unspecified; R19.7 Diarrhea, unspecified; E11.9 Type 2 diabetes mellitus without complications; I10 Essential (primary) hypertension; E78.5 Hyperlipidemia, unspecified; K21.9 Gastro-esophageal reflux disease without esophagitis; G43.909 Migraine, unspecified, not intractable, without status migrainosus; J45.909 Unspecified asthma, uncomplicated; F41.9 Anxiety disorder, unspecified; F32.9 Major depressive disorder, single episode, unspecified; Z87.448 Personal history of other diseases of urinary system; Z79.899 Other long term (current) drug therapy; Z88.2 Allergy status to sulfonamides; Z88.8 Allergy status to other drugs, medicaments and biological substances
CPT/HCPCS: 36415; 74177; 80047; 80076; 81001; 83605; 83690; 85025; 96361; 96374; 99284; J1885; Q9967

== ENCOUNTER 2021-05-21 05:55 | Emergency (ER) | payer BC ==
[~2021-05-21] VITALS: Ht 154.9 cm; Wt 78.1 kg
[~2021-05-21 05:55] MED LIST changes: +ATOR1TAB21; +BUPR150T12; +LISI-898; +TRES1INJ
--- NOTE | 2021-05-21 08:01 | REP ---
INDICATION: pain COMPARISON: None. TECHNIQUE: Internal rotation, external rotation, and Y view. FINDINGS: No evidence for acute fracture or dislocation. Mild cortical irregularity at the acromioclavicular joint is appreciated along with small 4 mm smooth calcification in the subacromial space suggesting mild/early calcific tendinopathy. IMPRESSION: Mild degenerative changes. <Electronically signed by Vinay Ramirez > 05/21/21 0750
[2021-05-21] MEDS ORDERED: ACETAMINOPHEN 500 MG TAB PO ONE (08:10)
[2021-05-21 09:34] VITALS: BP 141/75
== END 2021-05-21 10:11 | disposition home or self-care (01) ==
LOC: M ED 05:55
DX: S43.402A Unspecified sprain of left shoulder joint, initial encounter (principal); M19.012 Primary osteoarthritis, left shoulder; X58.XXXA Exposure to other specified factors, initial encounter; Y92.9 Unspecified place or not applicable; Y93.9 Activity, unspecified; Y99.9 Unspecified external cause status; E11.649 Type 2 diabetes mellitus with hypoglycemia without coma; I10 Essential (primary) hypertension; J45.909 Unspecified asthma, uncomplicated; E78.5 Hyperlipidemia, unspecified; G43.909 Migraine, unspecified, not intractable, without status migrainosus; K21.9 Gastro-esophageal reflux disease without esophagitis; F41.9 Anxiety disorder, unspecified; F32.9 Major depressive disorder, single episode, unspecified; E66.9 Obesity, unspecified; Z79.4 Long term (current) use of insulin; Z79.899 Other long term (current) drug therapy; Z88.2 Allergy status to sulfonamides; Z88.8 Allergy status to other drugs, medicaments and biological substances

== ENCOUNTER → 2021-08-18 | Outpatient (CLI) | payer BC, OTHER ==
[~2021-08-18] MED LIST changes: -LISI-898; +LISI5TAB11
== END ==
LOC: M RAD 08:05
PROVIDERS: ATTEND Orthopaedic Surgery Sports Medicine
DX: M75.42 Impingement syndrome of left shoulder (principal); M75.41 Impingement syndrome of right shoulder; M25.512 Pain in left shoulder

== ENCOUNTER → 2022-07-03 | Outpatient (CLI) | payer BC, OTHER | LOC: M WHC 15:29 | PROVIDERS: ATTEND Nurse Practitioner Adult Health | DX: Z12.31 Encounter for screening mammogram for malignant neoplasm of breast (principal) ==

== ENCOUNTER 2024-03-24 10:04 | Day surgery (SDC) | payer BC, OTHER ==
[~2024-03-24] VITALS: Ht 154.9 cm; Wt 70.9 kg
[~2024-03-24 10:04] MED LIST changes: -AK-T0.3S; +JARD1TAB3 PO; +MECL-209 PO; -MECL1TAB31 PO; +SEMA2PEN SC; +TOBR0.3S30
[2024-03-24] MEDS: NS 1,000 ML IV ONE (11:17)
[2024-03-24] MEDS ORDERED: propofoL 500 MG/50 ML VIAL As Ordered ONE (11:31)
[2024-03-24] MEDS ORDERED: LIDOCAINE 2% 100MG/5ML SDV (FOR ANES.) As Ordered ONE (11:31)
[2024-03-24] MEDS ORDERED: fentaNYL 100 MCG/2 ML INJECTION As Ordered ONE (11:32)
[2024-03-24 13:03] VITALS: TEMP 96.4
[2024-03-24 13:23] VITALS: BP 133/60; O2SAT 98
== END 2024-03-24 13:36 | disposition home or self-care (01) ==
LOC: M OPP 10:04
PROVIDERS: ATTEND Internal Medicine Gastroenterology
DX: Z12.11 Encounter for screening for malignant neoplasm of colon (principal); Z12.12 Encounter for screening for malignant neoplasm of rectum; K31.7 Polyp of stomach and duodenum; R12 Heartburn; Z80.0 Family history of malignant neoplasm of digestive organs; E11.9 Type 2 diabetes mellitus without complications; G47.30 Sleep apnea, unspecified; J45.909 Unspecified asthma, uncomplicated; Z79.02 Long term (current) use of antithrombotics/antiplatelets; Z79.51 Long term (current) use of inhaled steroids; Z79.84 Long term (current) use of oral hypoglycemic drugs; Z79.899 Other long term (current) drug therapy; Z88.2 Allergy status to sulfonamides; Z88.8 Allergy status to other drugs, medicaments and biological substances; E78.00 Pure hypercholesterolemia, unspecified; Z79.85 Long-term (current) use of injectable non-insulin antidiabetic drugs; Z90.710 Acquired absence of both cervix and uterus
CPT/HCPCS: 43251; 45378; 88305; J3010

== ENCOUNTER 2024-05-10 10:35 | Emergency (ER) | payer BC, OTHER ==
[~2024-05-10] VITALS: Ht 154.9 cm; Wt 69.9 kg
[2024-05-10] MEDS ORDERED: LOPE1CAP5 (10:45)
[2024-05-10] MEDS ORDERED: LEVOTAB10 (10:45)
[2024-05-10] MEDS ORDERED: BLOO-217 (10:45)
[2024-05-10] MEDS ORDERED: METAL LOCK LOOP XX ONE (11:31)
[2024-05-10 12:11] LABS: BASO % 0.2 % (0.0-1.0); EOS # 1.2 10^3/uL (0.0-0.5); EOS % 8.8 % (0.0-3.0); HEMATOCRIT 45.7 % (36.0-47.0); HEMOGLOBIN 15.4 g/dl (12.0-15.5); LYMPH # 2.7 10^3/uL (1.5-5.0); LYMPH % 19.7 % (24.0-44.0); MEAN CORPUSCULAR HEMOGLOBIN 31.2 pg (27.0-33.0); MEAN CORPUSCULAR HGB CONC 33.7 g/dl (32.0-36.5); MEAN CORPUSCULAR VOLUME 92.5 fl (80.0-96.0); MONO # 0.8 10^3/uL (0.0-0.8); MONO % 5.9 % (2.0-8.0); NEUTROPHILS # 8.9 10^3/uL (1.5-8.5); PLATELET COUNT, AUTOMATED 284 10^3/uL (150-450); RED BLOOD COUNT 4.94 10^6/uL (4.00-5.40); WHITE BLOOD COUNT 13.7 10^3/uL (4.0-10.0)
[2024-05-10 12:34] LABS: ALBUMIN 3.5 G/DL (3.2-5.2); BILIRUBIN,DIRECT 0.1 MG/DL (<0.4); BILIRUBIN,TOTAL 0.3 MG/DL (0.3-1.2); TOTAL PROTEIN 7.3 G/DL (5.7-8.2)
[2024-05-10] MEDS: NS 1,000 ML IV ONE (13:32)
[2024-05-10] MEDS: KETOROLAC 30 MG/ML 1ML VIAL IV ONE (13:33)
[2024-05-10] MEDS: ACETAMINOPHEN *IV* 1,000 MG in IV 1 EA IV ONE (13:33)
[2024-05-10] MEDS ORDERED: ISOVUE-370 76% 100ML VIAL As Ordered ONE (13:34)
[2024-05-10] MEDS ORDERED: ONDA-282 PO (15:32)
[2024-05-10 16:23] VITALS: BP 124/69; TEMP 97.6; O2SAT 96
== END 2024-05-10 16:25 | disposition home or self-care (01) ==
LOC: M ED 10:35
DX: R10.84 Generalized abdominal pain (principal); R11.2 Nausea with vomiting, unspecified; R19.7 Diarrhea, unspecified; E11.9 Type 2 diabetes mellitus without complications; K21.9 Gastro-esophageal reflux disease without esophagitis; I10 Essential (primary) hypertension; J45.909 Unspecified asthma, uncomplicated; Z88.2 Allergy status to sulfonamides; Z88.8 Allergy status to other drugs, medicaments and biological substances; Z79.51 Long term (current) use of inhaled steroids; Z79.899 Other long term (current) drug therapy
CPT/HCPCS: 74177; 80047; 80076; 81001; 83690; 85025; 96365; 96366; 96374; 99284; J0131; J1885; Q9967

== ENCOUNTER → 2024-06-07 | Outpatient (CLI) | payer BC, OTHER ==
[~2024-06-07] MED LIST changes: +BLOO-217; +LEVOTAB10; +LOPE1CAP5; +ONDA-282 PO
[2024-06-07 21:13] LABS: THYROID STIMULATING HORMONE 1.179 uIU/ML (0.55-4.78)
[2024-06-07 21:14] LABS: FREE T4 1.06 NG/DL (0.89-1.76)
[2024-06-07 22:11] LABS: THYROGLOBULIN ANTIBODY < 15.0 U/ML (<60.0); THYROID PEROXIDASE ANTIBODY 36 U/ML (<60.0); TOTAL T3 109.6 NG/DL (60.0-181.0)
== END ==
LOC: M WUC 15:27
PROVIDERS: ATTEND Physician Assistant
DX: E11.40 Type 2 diabetes mellitus with diabetic neuropathy, unspecified (principal)

== ENCOUNTER → 2024-08-31 | Outpatient (CLI) | payer BC, OTHER ==
[~2024-08-31] MED LIST changes: -ADV250INH INH; +ADVA1AER9 INH; +METF-1157 PO; -METF-818 PO
[2024-08-31 17:04] LABS: FREE T4 1.03 NG/DL (0.89-1.76); THYROID STIMULATING HORMONE 1.625 uIU/ML (0.55-4.78)
[2024-08-31 17:06] LABS: TOTAL T3 90.9 NG/DL (60.0-181.0)
[2024-09-04 15:28] LABS: THRYOGLOBULIN ANTIBODIES (ATA) < 1 IU/mL (< or = 1); THYROGLOBULIN QUANTITATIVE 9.2 ng/mL (2.8-40.9)
[2024-09-06 17:22] LABS: THYROID STIMULATING IMMUNOGLOB < 89 % baseline (<140)
== END ==
LOC: M WUC 13:19
PROVIDERS: ATTEND Physician Assistant
DX: E11.40 Type 2 diabetes mellitus with diabetic neuropathy, unspecified (principal)

== ENCOUNTER → 2024-09-29 | Outpatient (CLI) | payer BC, OTHER | LOC: M WHC 08:31 | PROVIDERS: ATTEND Nurse Practitioner Adult Health | DX: Z12.31 Encounter for screening mammogram for malignant neoplasm of breast (principal); R92.323 Mammographic fibroglandular density, bilateral breasts ==

== ENCOUNTER → 2024-12-19 | Outpatient (CLI) | payer BC, OTHER ==
[2024-12-19 18:48] LABS: CHOLESTEROL RISK RATIO 3.77 (<5); HDL CHOLESTEROL 41.1 MG/DL (>40); LDL CHOLESTEROL 67.9 MG/DL (<100); NON-HDL-C 113.9 MG/DL
[2024-12-19 18:51] LABS: THYROID STIMULATING HORMONE 1.582 uIU/ML (0.55-4.78); TOTAL 25(OH) VITAMIN D 57.6 NG/ML (20.0-100.0)
[2024-12-19 19:00] LABS: HEMOGLOBIN A1c 6.4 % (4.0-6.0)
[2024-12-19 19:15] LABS: CREATININE, URINE 68.5 MG/DL; MALB URINE SIEMENS < 3.0 MG/L
== END ==
LOC: M WUC 15:22
PROVIDERS: ATTEND Physician Assistant
DX: E11.40 Type 2 diabetes mellitus with diabetic neuropathy, unspecified (principal); E55.9 Vitamin D deficiency, unspecified

== ENCOUNTER → 2025-06-10 | Outpatient (REF) | payer BC ==
[2025-06-10 18:02] LABS: APPEARANCE, URINE MANUAL HAZY (CLEAR)
[2025-06-10 18:03] LABS: COLOR, URINE MANUAL ORANGE (YELLOW)
[2025-06-10 18:04] LABS: PH,URINE MAN 5.0 UNITS (5.0 - 7.0); PROTEIN, URINE MANUAL OBSCURED mg/dL (NEGATIVE); SPECIFIC GRAVITY,URINE MANUAL 1.020 (1.002-1.035)
[2025-06-10 18:05] LABS: BILIRUBIN, URINE MANUAL OBSCURED (NEGATIVE); BLOOD URINE MANUAL POSITIVE (NEGATIVE); GLUCOSE, URINE (UA) MANUAL 4+(1000 MG/DL) mg/dL (NEGATIVE); KETONE, URINE MANUAL OBSCURED mg/dL (NEGATIVE); LEUKOCYTE ESTERASE, URINE MAN POSITIVE (NEGATIVE); NITRITE, URINE MANUAL OBSCURED (NEGATIVE); UROBILINOGEN, URINE MANUAL OBSCURED mg/dl (NORMAL)
[2025-06-10 18:06] LABS: RBC, URINE 20-30 /hpf (0-3); WBC, URINE TNTC /hpf (0-3)
[2025-06-10 18:07] LABS: BACTERIA, URINE LARGE AMOUNT; HYALINE CAST, URINE NONE SEEN /lpf (0-1); SQUAMOUS EPITHELIAL CELL URINE SMALL AMOUNT /hpf (SMALL AMT)
== END ==
LOC: M LAB REF 17:27 → EEVIPCON 17:27
PROVIDERS: ATTEND Physician Assistant Medical
DX: N39.0 Urinary tract infection, site not specified (principal)

== ENCOUNTER → 2025-07-07 | Outpatient (CLI) | payer BC ==
[2025-07-07 12:55] LABS: CHOLESTEROL LEVEL 172.0 MG/DL (<200); CHOLESTEROL RISK RATIO 4.75 (<5); LDL CHOLESTEROL 99.4 MG/DL (<100); NON-HDL-C 135.8 MG/DL; TRIGLYCERIDES LEVEL 182.0 MG/DL (<150)
== END ==
LOC: M LAB 11:35
PROVIDERS: ATTEND Physician Assistant
DX: E78.2 Mixed hyperlipidemia (principal)